=== PATIENT | female | born 1980 | race Caucasian/White ===

== ENCOUNTER 2016-10-12 03:11 | Emergency (ER) | payer MEDICAID, OTHER ==
[~2016-10-12] VITALS: Ht 170.2 cm; Wt 71.0 kg
[~2016-10-12 03:11] MED LIST: OFLO0.3D9 LEFT EAR
[2016-10-12 03:12] VITALS: BP 142/76; PULSE 83; RESP 18; TEMP 98; O2SAT 100
[2016-10-12] MEDS ORDERED: LITH300C2 PO (03:38)
[2016-10-12] MEDS ORDERED: TOPA100T11 PO (03:38)
[2016-10-12] MEDS ORDERED: XANA2TAB2 PO (03:38)
[2016-10-12] MEDS ORDERED: SERO200T PO (03:38)
[2016-10-12] MEDS ORDERED: ZOLO50TA PO (03:38)
[2016-10-12] MEDS ORDERED: CLINDAMYCIN 150 MG CAP PO ONE (03:45)
[2016-10-12] MEDS ORDERED: DEXAMETHASONE SOD PHOS 4 MG/ML VIAL IM ONE (03:45)
[2016-10-12] MEDS ORDERED: CLIN1CAP5 PO (03:56)
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
[2016-10-12] MEDS ORDERED: ACETAMINOPHEN/HYDROcodone 325 MG/5 MG TAB PO ONE (04:00)
== END 2016-10-12 04:10 | disposition home or self-care (01) ==
LOC: NEPE 03:11
DX: L03.211 Cellulitis of face (principal); B95.61 Methicillin susceptible Staphylococcus aureus infection as the cause of diseases classified elsewhere; L30.9 Dermatitis, unspecified; F17.210 Nicotine dependence, cigarettes, uncomplicated; W17.89XA Other fall from one level to another, initial encounter; Y93.9 Activity, unspecified; Y92.481 Parking lot as the place of occurrence of the external cause
CPT/HCPCS: 86403; 87070; 87186; 87205; 96372; 99283; J1100

== ENCOUNTER 2016-12-21 13:09 | Inpatient (IN) | payer MEDICAID ==
[2016-12-21] VITALS (18 sets, daily range): BP systolic 103–136; BP diastolic 62–92; PULSE 59–85; RESP 12–16; TEMP 95.8–97.3; O2SAT 97–100
[~2016-12-21] VITALS: Ht 167.6 cm; Wt 77.4 kg
[~2016-12-21 13:09] MED LIST changes: +CLIN1CAP5 PO; +LITH300C2 PO; -OFLO0.3D9 LEFT EAR; +SERO200T PO; +TOPA100T11 PO; +XANA2TAB2 PO; +ZOLO50TA PO
[2016-12-21] MEDS ORDERED: NALOXONE HCL 0.4 MG/ML AMP ONE (13:25)
[2016-12-21] MEDS ORDERED: NALOXONE HCL 2 MG/2 ML VIAL ONE (13:25)
[2016-12-21] MEDS ORDERED: SUCCINYLCHOLINE CHLORIDE 200 MG/10 ML VIAL ONE (13:26)
[2016-12-21] MEDS ORDERED: ETOMIDATE 20 MG/10 ML VIAL ONE (13:26)
[2016-12-21] MEDS ORDERED: SODIUM CHLOR 0.9% 1000 ML INJ 1,000 ML IV ONE ×2 (13:27→14:45)
[2016-12-21] MEDS ORDERED: SODIUM CHLORIDE 0.9% FLUSH 10 ML FLUSH IVF PRN (13:30)
[2016-12-21] MEDS ORDERED: NALOXONE HCL 2 MG/2 ML VIAL IVP ONE (13:30)
[2016-12-21] MEDS ORDERED: ETOMIDATE 20 MG/10 ML VIAL IVP ONE (13:45)
[2016-12-21] MEDS ORDERED: SUCCINYLCHOLINE CHLORIDE 200 MG/10 ML VIAL IVP ONE (13:45)
[2016-12-21] MEDS ORDERED: PROPOFOL 1000 MG/100 ML INJ 100 ML IV SCH ×2 (13:45→15:45)
--- NOTE | 2016-12-21 13:52 | PD ---
HPI Chief Complaint: OD/ Ingestion Time Seen by Provider: 13:27 Travel History International Travel<30 days: No Contact w/Intl Traveler<30days: No History of Present Illness HPI 36-year-old female presents after being dropped off at her parent's house with decreased mentation. The prescription she had on her were Topamax, quietapine and a benzodiazepine. Patient is unresponsive and cannot provide any history. Unknown time of ingestion and unknown ingestion PFSH Past Medical History Narrative Medical By records Bipolar Disorder: Yes Anxiety: No Depression: Yes Diminished Hearing: No Endocrine: No Genitourinary: No Immune Disorder: No Musculoskeletal: No Neurologic: No Psychiatric: Yes (Hx of diagnosis of Bipolar Disorder) Reproductive: No Respiratory: No Immunizations Current: Yes Schizophrenia: Yes ?: Unknown Past Surgical History Surgical History: Unable to Obtain Other Surgery: No Social History Narrative Social History By records Alcohol Use: No Tobacco Use: Yes (1PPD) Substance Use: Yes (HX IV DRUG ABUSE, PAIN PILLS) Allergies-Medications (Allergen,Severity, Reaction): Coded Allergies: No Known Allergies (Unverified , 10/12/16) Per pt. Reported Meds & Prescriptions Reported Meds & Active Scripts Active Clindamycin (Clindamycin HCl) 150 Mg Cap 450 Mg PO Q8HR 14 Days Reported Seroquel (Quetiapine Fumarate) 200 Mg Tab 200 Mg PO HS Zoloft (Sertraline HCl) 50 Mg Tab 50 Mg PO DAILY Topamax (Topiramate) 100 Mg Tab 100 Mg PO DAILY Xanax (Alprazolam) 2 Mg Tab 2 Mg PO QID [place] Carbonate 300 Mg Cap 300 Mg PO DAILY Review of Systems ROS Limitations: Clinical Condition, Altered Mental Status Physical Exam Exam Limitations: Clinical Condition Narrative GENERAL: Appears older than stated age unresponsive patient. SKIN: dry. HEAD: Normocephalic and atraumatic. EYES: No injection or drainage. Pupils pinpoint ENT: No nasal drainage noted. NECK: Supple, trachea midline. CARDIOVASCULAR: Regular rate and rhythm RESPIRATORY: Decreased respirations. No accessory muscle use. GASTROINTESTINAL: Abdomen soft, nondistended. NEUROLOGICAL: Unresponsive Data Data Last Documented VS Vital Signs Date Time Temp Pulse Resp B/P Pulse Ox O2 Delivery O2 Flow Rate FiO2 12/21/16 14:38 100 100 12/21/16 14:11 70 14 103/62 Auto-Vent Orders Naloxone Inj (Narcan Inj) (12/21/16 13:25) Naloxone Inj (Narcan Inj) (12/21/16 13:25) Etomidate Inj (Amidate Inj) (12/21/16 13:26) Succinylcholine Inj (Quelicin Inj) (12/21/16 13:26) Electrocardiogram (12/21/16 13:27) Complete Blood Count With Diff (12/21/16 13:27) Comprehensive Metabolic Panel (12/21/16 13:27) Prothrombin Time / Inr (Pt) (12/21/16 13:27) Act Partial Throm Time (Ptt) (12/21/16 13:27) Urinalysis - C+S If Indicated (12/21/16 13:27) Chest, Single Ap (12/21/16 13:27) Ct Brain W/O Iv Contrast(Rout) (12/21/16 13:27) Arterial Blood Gas (Abg) (12/21/16 13:27) Blood Glucose (12/21/16 13:27) Iv Access Insert/Monitor (12/21/16 13:27) Ecg Monitoring (12/21/16 13:27) Oximetry (12/21/16 13:27) Ng Gastric Tube Insert/Monitor (12/21/16 13:27) Urinary Catheter Insert/Apply (12/21/16 13:27) Naloxone Inj (Narcan Inj) (12/21/16 13:30) Sodium Chloride 0.9% Flush (Ns Flush) (12/21/16 13:30) Sodium Chlor 0.9% 1000 Ml Inj (Ns 1000 M (12/21/16 13:27) Call Poison Control (12/21/16 13:27) Drug Screen, Random Urine (12/21/16 13:27) Alcohol (Ethanol) (12/21/16 13:27) Salicylates (Aspirin) (12/21/16 13:27) Tylenol (Acetaminophen) (12/21/16 13:27) Ed Urine Pregnancytest Poc (12/21/16 13:27) Propofol 1000 Mg/100 Ml Inj (Diprivan 10 (12/21/16 13:45) ^ Infusion (12/21/16 13:37) RASS (12/21/16 13:37) Neurological Rass Scale KANCHAN.Q2H (12/21/16 13:37) Etomidate Inj (Amidate Inj) (12/21/16 13:45) Succinylcholine Inj (Quelicin Inj) (12/21/16 13:45) [place] (Li) (12/21/16 13:38) Topiramate (Topamax) (12/21/16 13:38) Urine Culture (12/21/16 13:20) Lactic Acid Sepsis Protocol (12/21/16 14:35) Blood Culture (12/21/16 14:35) Sodium Chlor 0.9% 1000 Ml Inj (Ns 1000 M (12/21/16 14:45) Piperacil-Tazo 3.375 Gm Premix (Zosyn 3. (12/21/16 14:45) Admit Order (Ed Use Only) (12/21/16 14:37) Labs Laboratory Tests Test 12/21/16 13:20 White Blood Count 5.3 TH/MM3 Red Blood Count 4.25 MIL/MM3 Hemoglobin 11.8 GM/DL Hematocrit 35.9 % Mean Corpuscular Volume 84.6 FL Mean Corpuscular Hemoglobin 27.7 PG Mean Corpuscular Hemoglobin 32.7 % Concent Red Cell Distribution Width 15.8 % Platelet Count 161 TH/MM3 Mean Platelet Volume 10.0 FL Neutrophils (%) (Auto) 47.2 % Lymphocytes (%) (Auto) 41.4 % Monocytes (%) (Auto) 5.7 % Eosinophils (%) (Auto) 5.1 % Basophils (%) (Auto) 0.6 % Neutrophils # (Auto) 2.5 TH/MM3 Lymphocytes # (Auto) 2.2 TH/MM3 Monocytes # (Auto) 0.3 TH/MM3 Eosinophils # (Auto) 0.3 TH/MM3 Basophils # (Auto) 0.0 TH/MM3 CBC Comment DIFF FINAL Differential Comment Prothrombin Time 9.8 SEC Prothromb Time International 0.9 RATIO Ratio Activated Partial 25.7 SEC Thromboplast Time Urine Color YELLOW Urine Turbidity HAZY Urine pH 6.5 Urine Specific [place] 1.010 Urine Protein NEG mg/dL Urine Glucose (UA) NEG mg/dL Urine Ketones NEG mg/dL Urine Occult Blood NEG Urine Nitrite NEG Urine Bilirubin NEG Urine Urobilinogen LESS THAN 2.0 MG/DL Urine Leukocyte Esterase MOD Urine RBC 5 /hpf Urine WBC 5 /hpf Urine Squamous Epithelial <1 /hpf Cells Urine Bacteria MANY /hpf Urine Hyaline Casts 1 /lpf Urine Mucus FEW /lpf Microscopic Urinalysis Comment CULTURE INDICATED Sodium Level 139 MEQ/L Potassium Level 3.9 MEQ/L Chloride Level 106 MEQ/L Carbon Dioxide Level 27.3 MEQ/L Anion Gap 6 MEQ/L Blood Urea Nitrogen 12 MG/DL Creatinine 0.64 MG/DL Estimat Glomerular Filtration 106 ML/MIN Rate Random Glucose 83 MG/DL Calcium Level 8.6 MG/DL Phosphorus Level 3.0 MG/DL Magnesium Level 2.6 MG/DL Total Bilirubin 0.2 MG/DL Aspartate Amino Transf 17 U/L (AST/SGOT) Alanine Aminotransferase 19 U/L (ALT/SGPT) Alkaline Phosphatase 67 U/L Total Creatine Kinase 55 U/L Troponin I LESS THAN 0.02 NG/ML Total Protein 6.4 GM/DL Albumin 3.4 GM/DL Thyroid Stimulating Hormone 4.550 uIU/ML 3rd Gen Human Chorionic Gonadotropin, LESS THAN 1 Quant MIU/ML Salicylates Level 1.7 MG/DL Urine Opiates Screen NEG Acetaminophen Level LESS THAN 2.0 MCG/ML Urine Barbiturates Screen NEG Urine Amphetamines Screen POS Urine Benzodiazepines Screen POS Urine Cocaine Screen NEG Urine Cannabinoids Screen NEG Ethyl Alcohol Level LESS THAN 3 MG/DL MDM Medical Decision Making Medical Screen Exam Complete: Yes Emergency Medical Condition: Yes Medical Record Reviewed: Yes (past history confirmed) Interpretation(s) CBC & BMP Diagram 12/21/16 13:20 Last [address] 12/21/16 1327 Signed Impressions: Service Date/Time: November 14:29 - CONCLUSION: Normal examination. Jordi Naranjo MD Chest X-Ray 12/21/16 1327 Signed Impressions: Service Date/Time: November 13:53 - CONCLUSION: 1. Endotracheal tube and nasogastric tube in satisfactory position. Minimal basilar atelectasis. Tawanda Harding MD Differential Diagnosis Overdose, congestion, hypoglycemia, intracranial, electrolyte abnormality.... Narrative Course Patient received 0.4 mg of Narcan without change and then was given in additional 1.5 mg of Narcan without any change so proceeded with rapid sequence intubation for airway protection, Will check blood work, imaging and monitor and place [facility] ed with positive benzodiazepines and amphetamines. She will be monitored in the ICU setting Critical Care Narrative Aggregate critical care time was 31 minutes. Time to perform other separately billable procedures was not included in the critical care time. My time did not include minutes spent treating any other patients simultaneously or on activities that did not directly contribute to the patient's treatment. The services I provided to this patient were to treat and/or prevent clinically significant deterioration that could result in: Shock, , Respiratory failure I provided critical care services requiring my management, as noted below: Chart data review, documentation time, medication orders and management, vital sign assessments/reviewing monitor data, ordering and reviewing lab tests, ordering and interpreting/reviewing x-rays and diagnostic studies, care of the patient and discussion of the patient with the admitting physicians. Procedures Procedure Narrative Emergently performed: INTUBATION: The patient was put in optimal position for the procedure. Rapid sequence intubation was initiated by me using 20 milligrams of etomidate IV and 100 milligrams of succinylcholine IV. The patient was intubated with a 7.5 cuffed endotracheal tube. Tube placement was confirmed by visualization of the tube and balloon passing through the cords, capnometry and subsequent chest x- ray. Breath sounds were equal and well aerated bilaterally postintubation. No breath sounds over stomach. Patient tolerated procedure well. Physician Communication Physician Communication dr alarcon agrees to admit Diagnosis Primary Impression: Overdose Qualified Code: T50.904A - Overdose, undetermined intent, initial encounter Additional Impression: Respiratory failure Qualified Code: J96.90 - Respiratory failure, unspecified chronicity, unspecified whether with hypoxia or hypercapnia Admitting Information Admitting Physician Requests: Admit Anastasiya Sandy MD December 21, 2016 13:52
--- NOTE | 2016-12-21 14:05 | RADRPT ---
EXAM DATE/TIME: 12/21/2016 13:53 [facility] COMPARISON: No previous studies available for comparison. INDICATIONS : Post intubation and OG tube placement. MEDICAL HISTORY : Unobtainable. SURGICAL HISTORY : Unobtainable. ENCOUNTER: Initial ACUITY: 1 day PAIN SCORE: Non-responsive. LOCATION: Bilateral chest FINDINGS: Endotracheal tube tip is in satisfactory position. NG tube in stomach. There is minimal subsegmental airspace disease at the bases. No effusion. No pneumothorax. CONCLUSION: 1. Endotracheal tube and nasogastric tube in satisfactory position. Minimal basilar atelectasis. Tawanda Harding MD on December 21, 2016 at 14:02 Board Certified Radiologist. This report was verified electronically.
[2016-12-21 14:19] LABS: AUTOMATED NEUTROPHIL # 2.5 TH/MM3 (1.8-7.7); BASOPHIL % 0.6 % (0.0-2.0); EOSINOPHIL # 0.3 TH/MM3 (0-0.4); EOSINOPHIL % 5.1 % (0.0-4.0); HEMATOCRIT 35.9 % (35.0-46.0); HEMO FLAGS DIFF FINAL; LYMPH % 41.4 % (9.0-44.0); LYMPHOCYTE # 2.2 TH/MM3 (1.0-4.8); MEAN CELL VOLUME 84.6 FL (80.0-100.0); MEAN CORPUSCULAR HEMOGLOBIN 27.7 PG (27.0-34.0); MEAN CORPUSCULAR HGB CONC 32.7 % (32.0-36.0); MONO % 5.7 % (0.0-8.0); NEUT % 47.2 % (16.0-70.0); PLATELET COUNT 161 TH/MM3 (150-450); RED BLOOD COUNT 4.25 MIL/MM3 (4.00-5.30); RED CELL DISTRIBUTION WIDTH 15.8 % (11.6-17.2); WHITE BLOOD COUNT 5.3 TH/MM3 (4.0-11.0)
[2016-12-21 14:26] LABS: BACTERIA, URINE MANY /hpf; BLOOD, URINE NEG (NEG); COMMENT (UR) CULTURE INDICATED; CULTURE IF INDICATED CULTURE INDICATED; GLUCOSE,URINE NEG (NEG); HYALINE CAST, URINE 1 /lpf (RARE); KETONE, URINE NEG (NEG); MUCUS URINE FEW /lpf (OCC); NITRITE,URINE NEG (NEG); PH, URINE 6.5 (5.0-8.5); SQUAMOUS EPITHELIAL CELL URINE <1 /hpf (0-5); URINE COLOR YELLOW (YELLW/STRAW)
[2016-12-21 14:28] LABS: AMPHETAMINE, URINE POS (NEG); BARBITURATES, URINE NEG (NEG); COCAINE, URINE NEG (NEG)
[2016-12-21 14:29] LABS: APTT (PATIENT) 25.7 SEC (24.3-30.1); INTERNATIONAL NORMALIZED RATIO 0.9 RATIO; PROTHROMBIN TIME - PATIENT 9.8 SEC (9.8-11.6)
[2016-12-21 14:37] LABS: ALT (GPT) 19 U/L (10-53); ANION GAP 6 MEQ/L (5-15); AST (GOT) 17 U/L (15-37); BICARBONATE 27.3 MEQ/L (21.0-32.0); BLOOD UREA NITROGEN 12 MG/DL (7-18); CHLORIDE 106 MEQ/L (98-107); GLOMERULAR FILTRATION RATE 106 ML/MIN (>89); POTASSIUM 3.9 MEQ/L (3.5-5.1); SODIUM (NA) 139 MEQ/L (136-145)
[2016-12-21 14:40] LABS: ACETAMINOPHEN LESS THAN 2.0 MCG/ML (10.0-30.0); ALKALINE PHOSPHATASE 67 U/L (45-117); TOTAL BILIRUBIN ADULT 0.2 MG/DL (0.2-1.0)
[2016-12-21] MEDS ORDERED: PIPERACIL-TAZO 3.375 GM PREMIX 50 ML IV ONE (14:45)
--- NOTE | 2016-12-21 14:46 | RADRPT ---
EXAM DATE/TIME: 12/21/2016 14:29 [facility] COMPARISON: CT BRAIN W/O CONTRAST, August 18, 2014, 19:36. INDICATIONS : Evaluate for altered mental status. RADIATION DOSE: 56.37 CTDIvol (mGy) MEDICAL HISTORY : Non-responsive. SURGICAL HISTORY : Non-responsive. ENCOUNTER: Initial ACUITY: 1 day PAIN SCALE: Non-responsive LOCATION: Bilateral cranial TECHNIQUE: Multiple contiguous axial images were obtained of the head. Using automated exposure control and adj ustment of the mA and/or kV according to patient size, radiation dose was kept as low as reasonably a chievable to obtain optimal diagnostic quality images. FINDINGS: CEREBRUM: The ventricles are normal for age. No evidence of midline shift, mass lesion, hemorrhage or acute in farction. No extra-axial fluid collections are seen. POSTERIOR FOSSA: The cerebellum and brainstem are intact. The 4th ventricle is midline. The cerebellopontine angle i s unremarkable. EXTRACRANIAL: The visualized portion of the orbits is intact. SKULL: The calvaria is intact. No evidence of skull fracture. CONCLUSION: Normal examination. Jordi Naranjo MD on December 21, 2016 at 14:41 Board Certified Radiologist. This report was verified electronically.
[2016-12-21] MEDS ORDERED: CHLORHEXIDINE GLUCONATE 2 % 1 PACK (2 CLOTHS) TOP PRN (15:15)
[2016-12-21] MEDS ORDERED: SENNOSIDES 8.6 MG TAB PO PRN (15:15)
[2016-12-21] MEDS ORDERED: BISACODYL 10 MG SUPP RECTAL PRN (15:15)
[2016-12-21] MEDS ORDERED: SODIUM CHLORIDE 0.9% FLUSH 10 ML FLUSH IV FLUSH PRN (15:15)
[2016-12-21] MEDS ORDERED: LACTULOSE SYRUP 20 GM/30 ML CUP PO PRN (15:15)
[2016-12-21] MEDS ORDERED: MAGNESIUM HYDROXIDE SUSP 30 ML CUP PO PRN (15:15)
[2016-12-21] MEDS ORDERED: ONDANSETRON HCL 4 MG/2 ML VIAL IV PRN (15:15)
[2016-12-21] MEDS ORDERED: fentaNYL DRIP 250 ML IV SCH ×2 (15:15→15:45)
[2016-12-21] MEDS ORDERED: MISCELLANEOUS NURSING INFORMATION XX SCH (15:15)
[2016-12-21] MEDS ORDERED: RESP: ALBUTEROL 2.5 MG/3 ML NEB (PRN) INH (15:15)
--- NOTE | 2016-12-21 15:37 | HHI.HP ---
[facility] Service Critical Care Medicine Primary Care Physician Unknown Admission Diagnosis overdose, respiratory failure Diagnosis: (1) Respiratory failure Diagnosis: Principal (2) Overdose Diagnosis: Principal (3) Bipolar disorder, most recent episode depressed Diagnosis: Principal Chief Complaint: EVAC from parent's house unresponsive Travel History International Travel<30 Days: No Contact w/Intl Traveler <30 Da: No History of Present Illness 36-year-old female. The admission 12/21/2016. Past medical history includes bipolar disorder, schizophrenia, depression, history of opiate addiction, IV drug use and ongoing tobaccoism. She presents to [facility] ED after being dropped off parent's house unresponsive. In route she was noted to have three-vessel particles labeled Topamax 75 mg in the morning, Seroquel 300 mg a night and Xanax 1 mg 4 times a day with many different pole fragments inside. Patient was placed on nonrebreather hemodynamic stable. She was given 1.5 mg of Narcan along with 0.5 mg of flumazenil without response. Due to her respiratory status the decision was made to intubate with 7.5 ET tube after receiving 20 mg etomidate 100 mg succinylcholine by ED physician. CT head showed no acute findings. Urine tox screen revealed positive for benzodiazepines and amphetamines. Patient has been on lithium the past and this will be checked along Topamax level. She is currently minimally responsive on the ventilator in room E 50 on 5 mcg/kg/m a propofol Review of Systems ROS Limitations: Intubated Past Family Social History Allergies: Coded Allergies: No Known Allergies (Unverified , 10/12/16) Per pt. Past Medical History Depression Bipolar disorder Schizophrenia History of opiate. Abuse History of IV drug use Tobaccoism Past Surgical History None documented. Reported Medications Active Clindamycin (Clindamycin HCl) 150 Mg Cap 450 Mg PO Q8HR 14 Days Reported Seroquel (Quetiapine Fumarate) 200 Mg Tab 200 Mg PO HS Zoloft (Sertraline HCl) 50 Mg Tab 50 Mg PO DAILY Topamax (Topiramate) 100 Mg Tab 100 Mg PO DAILY Xanax (Alprazolam) 2 Mg Tab 2 Mg PO QID [place] Carbonate 300 Mg Cap 300 Mg PO DAILY Active Ordered Medications Reviewed in EMR Family History Father with diabetes mellitus. Positive family history of bipolar disorder. Social History Social alcohol documented. One pack per day tobacco document. Positive history of IV drug use. Physical Exam Vital Signs Vital Signs Date Time Temp Pulse Resp B/P Pulse Ox O2 Delivery O2 Flow Rate FiO2 12/21/16 15:23 97.3 59 14 108/70 100 Auto-Vent 12/21/16 14:38 100 100 12/21/16 14:11 70 14 103/62 100 Auto-Vent 12/21/16 13:57 85 14 109/72 100 Auto-Vent 12/21/16 13:41 74 12/21/16 13:25 97 50 12/21/16 13:15 74 12 136/92 100 Physical Exam GENERAL: 36-year-old female, critically ill currently orotracheally intubated SKIN: Warm and dry. No rash HEAD: Atraumatic. Normocephalic. EYES: Pupils equal and round about 3 mm bilaterally and reactive. No scleral icterus. No injection or drainage. ENT: No nasal bleeding or discharge. Mucous membranes pink and moist. Oropharynx without erythema. NECK: Trachea midline. No JVD. CARDIOVASCULAR: Tachycardic, RR. S1, S2. No S4. Without murmur RESPIRATORY: Clear to auscultation. Breath sounds equal bilaterally. GASTROINTESTINAL: Abdomen soft, non-tender, nondistended. Hypoactive bowel sounds are appreciated MUSCULOSKELETAL: Extremities without significant peripheral edema. No obvious deformities. NEUROLOGICAL: Positive corneal reflex. Positive gag. Minimally responsive to deep tissue stimulation bilateral upper extremity. Upgoing toes. Laboratory Laboratory Tests Test 12/21/16 13:20 White Blood Count 5.3 Red Blood Count 4.25 Hemoglobin 11.8 Hematocrit 35.9 Mean Corpuscular Volume 84.6 Mean Corpuscular Hemoglobin 27.7 Mean Corpuscular Hemoglobin 32.7 Concent Red Cell Distribution Width 15.8 Platelet Count 161 Mean Platelet Volume 10.0 Neutrophils (%) (Auto) 47.2 Lymphocytes (%) (Auto) 41.4 Monocytes (%) (Auto) 5.7 Eosinophils (%) (Auto) 5.1 Basophils (%) (Auto) 0.6 Neutrophils # (Auto) 2.5 Lymphocytes # (Auto) 2.2 Monocytes # (Auto) 0.3 Eosinophils # (Auto) 0.3 Basophils # (Auto) 0.0 CBC Comment DIFF FINAL Differential Comment Prothrombin Time 9.8 Prothromb Time International 0.9 Ratio Activated Partial 25.7 Thromboplast Time Urine Color YELLOW Urine Turbidity HAZY Urine pH 6.5 Urine Specific Reliance 1.010 Urine Protein NEG Urine Glucose (UA) NEG Urine Ketones NEG Urine Occult Blood NEG Urine Nitrite NEG Urine Bilirubin NEG Urine Urobilinogen LESS THAN 2.0 Urine Leukocyte Esterase MOD Urine RBC 5 Urine WBC 5 Urine Squamous Epithelial <1 Cells Urine Bacteria MANY Urine Hyaline Casts 1 Urine Mucus FEW Microscopic Urinalysis Comment CULTURE INDICATED Sodium Level 139 Potassium Level 3.9 Chloride Level 106 Carbon Dioxide Level 27.3 Anion Gap 6 Blood Urea Nitrogen 12 Creatinine 0.64 Estimat Glomerular Filtration 106 Rate Random Glucose 83 Calcium Level 8.6 Total Bilirubin 0.2 Aspartate Amino Transf 17 (AST/SGOT) Alanine Aminotransferase 19 (ALT/SGPT) Alkaline Phosphatase 67 Total Protein 6.4 Albumin 3.4 Salicylates Level 1.7 Urine Opiates Screen NEG Acetaminophen Level LESS THAN 2.0 Urine Barbiturates Screen NEG Urine Amphetamines Screen POS Urine Benzodiazepines Screen POS Urine Cocaine Screen NEG Urine Cannabinoids Screen NEG Ethyl Alcohol Level LESS THAN 3 Date/Time Procedure Status Source Growth 12/21/16 13:30 Aerobic Blood Culture Received Blood Peripheral Pending 12/21/16 13:30 Anaerobic Blood Culture Received Blood Peripheral Pending 12/21/16 13:20 Urine Culture Received Urine Random Urine Pending Result Diagram: 12/21/16 1320 12/21/16 1320 Imaging Last Impressions Head CT 12/21/16 1327 Signed Impressions: Service Date/Time: November 14:29 - CONCLUSION: Normal examination. Jordi Naranjo MD Chest X-Ray 12/21/16 1327 Signed Impressions: Service Date/Time: November 13:53 - CONCLUSION: 1. Endotracheal tube and nasogastric tube in satisfactory position. Minimal basilar atelectasis. Tawanda Harding MD Assessment and Plan Assessment and Plan Neuro/Psych: Acute encephalopathy likely toxic metabolic secondary to polysubstance overdose History of bipolar disorder Schizophrenia Depression Currently on propofol and fentanyl drips for sedation/analgesia while intubated Goal of RA SS -[address] head showed no acute intracranial findings EEG has been ordered Urine toxicology screen positive for benzos and amphetamines. [place] and Topamax levels pending Home medications Topamax 100 mg daily, Zoloft 100 mg daily, Seroquel 200 mg a night, Xanax 2 mg 4 times a day and lithium 300 mg daily. CV: Sinus bradycardia On normal saline at 84 cc an hour Currently hemodynamically stable not requiring vasopressors and/or anti- hypertensives Monitor EEG and temperature. TSH and troponin pending EKG QTC level 468 Resp: Acute respiratory failure secondary to AMS PRVC 16/500/5/100 Ventilator bundle Duo nebs every 6 hours with albuterol nebs every 2 hours when necessary dyspnea Spontaneous breathing trials daily Follow-up chest x-ray and ABG post intubation GI: Patient is currently nothing by mouth OG tube to low intermittent wall suction Protonix for GI prophylaxis Maricel-Colace twice a day bowel regimen : Blanchard for accurate I's and O's in a critically ill patient Endo: Sliding-scale insulin if indicated to maintain euglycemia Renal: Monitor urine output Accurate I's and O's Creatinine currently within normal limits. Follow-up in a.m. Heme: CBC and coags within normal limits Follow-up a.m. labs ID: [id number] Currently on Zosyn 4.5 g IV every 8 hours. Day 1 Blood cultures 2, urine sample slurred in ED MSK: PT evaluate and treat FEN: Magnesium and phosphorus pain. Replace electrolytes as clinically indicated Access - 2 - 20-gauge peripheral IVs. Central line if indicated Prophylaxis - GI - Protonix - DVT - SCD/heparin subcutaneous Critical Care: The total critical care time was 35 minutes. Time to perform other separately billable procedures was not included in the critical care time. Code Status Full code Discussed Condition With Dr. Sandy/ED physician. No family available. Care plan discussed and all questions answered. Problem Qualifiers (1) Respiratory failure: Qualified Code: J96.90 - Respiratory failure, unspecified chronicity, unspecified whether with hypoxia or hypercapnia (2) Overdose: Qualified Code: T50.904A - Overdose, undetermined intent, initial encounter Brian Grigsby MD December 21, 2016 15:37
[2016-12-21] MEDS ORDERED: GLUCAGON 1 MG/ML VIAL OTHER PRN (15:45)
[2016-12-21] MEDS ORDERED: DEXTROSE 50% IN WATER 50 ML VIAL(D50) IV PRN (15:45)
[2016-12-21 15:49] LABS: MAGNESIUM 2.6 MG/DL (1.5-2.5)
[2016-12-21 15:58] LABS: BETA HCG QUANT LESS THAN 1 MIU/ML (0-5)
[2016-12-21 16:11] LABS: CREATINE KINASE 55 U/L (26-192)
--- NOTE | 2016-12-21 17:05 | MG ---
cc: LAWSON CORBETT Lab No: [id number] Date: Age: 36 Sex: F Race: Intubated on Diprivan. Hyperventilation not done. 36-year-old woman with history of bipolar. Diprivan. DESCRIPTION OF THE RECORDING: The recording shows a 14 hertz diffuse rhythm. The recording overall is synchronous and symmetric. I do not see any hemisphere asymmetries. No epileptiform or seizure activity is noted. Photic stimulation is performed without significant posterior driving. IMPRESSION: A normal EEG. No evidence for a focal or diffuse abnormality. MD CHLOE Brice/CHIN /4:59 PM /5:03 PM
[2016-12-21] MEDS: RESP: ALBUTEROL 2.5 MG/IPRATROPIUM 0.5 MG NEB (SCH) INH ×2 (17:22→20:04)
[2016-12-21] MEDS: INSULIN NovoLIN REGULAR SUPPLEMENTAL SCALE SQ SCH (18:00)
[2016-12-21] MEDS: ARTIFICIAL TEARS OPTH SOLN 15 ML BTL EACH EYE SCH (18:00)
[2016-12-21] MEDS: HEPARIN SODIUM - SQ 10,000 UNITS/ML VIAL SQ SCH (18:38)
[2016-12-21] MEDS: SODIUM CHLOR 0.9% 1000 ML INJ 1,000 ML IV SCH (18:44)
[2016-12-21 18:48] LABS: BLOOD GAS BASE EXCESS -1.3 mmol/L (-2-2); BLOOD GAS CARBOXYHEMOGLOBIN 1.4 % (0-4); BLOOD GAS HCO3 23 mmol/L (22-26); BLOOD GAS METHEMOGLOBIN 1.2 % (0-2); BLOOD GAS O2 HGB SATURATION 96 % (90-100); BLOOD GAS OXYGEN CONTENT 15.1 Vol % (12.0-20.0); BLOOD GAS PCO2 39 mmHg (38-42); BLOOD GAS PO2 177 mmHg (61-120); BLOOD GAS TOTAL HGB 10.9 G/DL (12.0-16.0); CRITICAL VALUE NO; OXYGEN DEVICE VENTILATOR; TEMP CORR TO 98.6
[2016-12-21 18:49] LABS: FIO2 35 %; VENT SETTINGS PRVC/AC
[2016-12-21 18:50] LABS: DRAW SITE RT RADIAL; NUMBER OF ARTERIAL PUNCTURES 1; STAT YES; ULNAR PULSE PRESENT
[2016-12-21] MEDS: DOCUSATE SODIUM 50 MG/SENNA 8.6 MG TAB PO SCH (20:14)
[2016-12-21] MEDS: SODIUM CHLORIDE 0.9% FLUSH 10 ML FLUSH IV FLUSH SCH (20:14)
[2016-12-21] MEDS: CHLORHEXIDINE 0.12% (ORAL KIT) 15 ML CUP MT SCH (20:14)
[2016-12-21] MEDS: PIPERACIL-TAZO 4.5 GM PREMIX 100 ML IV SCH (22:16)
[2016-12-22] VITALS (32 sets, daily range): BP systolic 89–115; BP diastolic 52–75; PULSE 64–95; RESP 8–31; TEMP 97.5–98.4; O2SAT 94–100
[2016-12-22] MEDS: PROPOFOL 1000 MG/100 ML INJ 100 ML IV SCH ×2 (01:43→05:48)
[2016-12-22 02:44] LABS: ACETAMINOPHEN LESS THAN 2.0 MCG/ML (10.0-30.0); BETA-HYDROXYBUTYRATE 0.07 MMOL/L (0.00-0.39)
[2016-12-22] MEDS: SODIUM CHLOR 0.9% 1000 ML INJ 1,000 ML IV SCH (03:05)
[2016-12-22] MEDS: RESP: ALBUTEROL 2.5 MG/IPRATROPIUM 0.5 MG NEB (SCH) INH ×4 (03:38→20:44)
[2016-12-22] MEDS: CHLORHEXIDINE GLUCONATE 2 % 1 PACK (2 CLOTHS) TOP SCH (04:00)
[2016-12-22] MEDS: HEPARIN SODIUM - SQ 10,000 UNITS/ML VIAL SQ SCH ×2 (04:33→16:08)
[2016-12-22 05:39] LABS: AUTOMATED NEUTROPHIL # 3.2 TH/MM3 (1.8-7.7); BASOPHIL % 0.4 % (0.0-2.0); EOSINOPHIL # 0.2 TH/MM3 (0-0.4); EOSINOPHIL % 3.7 % (0.0-4.0); HEMATOCRIT 33.5 % (35.0-46.0); HEMO FLAGS DIFF FINAL; LYMPH % 29.5 % (9.0-44.0); LYMPHOCYTE # 1.6 TH/MM3 (1.0-4.8); MEAN CELL VOLUME 85.1 FL (80.0-100.0); MEAN CORPUSCULAR HEMOGLOBIN 27.9 PG (27.0-34.0); MEAN CORPUSCULAR HGB CONC 32.8 % (32.0-36.0); MONO % 6.6 % (0.0-8.0); NEUT % 59.8 % (16.0-70.0); PLATELET COUNT 124 TH/MM3 (150-450); RED BLOOD COUNT 3.93 MIL/MM3 (4.00-5.30); RED CELL DISTRIBUTION WIDTH 16.5 % (11.6-17.2); WHITE BLOOD COUNT 5.4 TH/MM3 (4.0-11.0)
[2016-12-22] MEDS: INSULIN NovoLIN REGULAR SUPPLEMENTAL SCALE SQ SCH ×3 (05:48→12:00)
[2016-12-22] MEDS: PIPERACIL-TAZO 4.5 GM PREMIX 100 ML IV SCH ×3 (05:48→21:03)
[2016-12-22 06:20] LABS: ALKALINE PHOSPHATASE 63 U/L (45-117); ALT (GPT) 18 U/L (10-53); ANION GAP 6 MEQ/L (5-15); AST (GOT) 17 U/L (15-37); BICARBONATE 23.7 MEQ/L (21.0-32.0); BLOOD UREA NITROGEN 9 MG/DL (7-18); CHLORIDE 114 MEQ/L (98-107); GLOMERULAR FILTRATION RATE 102 ML/MIN (>89); MAGNESIUM 2.4 MG/DL (1.5-2.5); POTASSIUM 3.6 MEQ/L (3.5-5.1); SODIUM (NA) 144 MEQ/L (136-145); TOTAL BILIRUBIN ADULT 0.2 MG/DL (0.2-1.0)
--- NOTE | 2016-12-22 08:07 | HHI.CCPN ---
Subjective Remarks/Hospital Course 36-year-old female. The admission 12/21/2016. Past medical history includes bipolar disorder, schizophrenia, depression, history of opiate addiction, IV drug use and ongoing tobaccoism. She presents to [facility] ED after being dropped off parent's house unresponsive. In route she was noted to have three-vessel particles labeled Topamax 75 mg in the morning, Seroquel 300 mg a night and Xanax 1 mg 4 times a day with many different pole fragments inside. Patient was placed on nonrebreather hemodynamic stable. She was given 1.5 mg of Narcan along with 0.5 mg of flumazenil without response. Due to her respiratory status the decision was made to intubate with 7.5 ET tube after receiving 20 mg etomidate 100 mg succinylcholine by ED physician. CT head showed no acute findings. Urine tox screen revealed positive for benzodiazepines and amphetamines. Patient has been on lithium the past and this will be checked along Topamax level. She is currently minimally responsive on the ventilator in room E 50 on 5 mcg/kg/m a propofol Subjective 12/22: Awake and alert and following commands. Afebrile. Will attempt extubation today. Of note she is Qureshi acted. Objective Vital Signs Date Time Temp Pulse Resp B/P Pulse Ox O2 Delivery O2 Flow Rate FiO2 12/22/16 06:00 68 12/22/16 04:09 100 35 12/22/16 04:00 97.5 16 104/64 12/21/16 16:00 Auto-Vent Intake and Output 12/21/16 12/21/16 12/22/16 08:00 16:00 00:00 Intake Total 561 ml Output Total 2601 ml Balance -2040 ml Result Diagram: 12/22/16 0530 12/22/16 0530 Other Results Microbiology Date/Time Procedure Status Source Growth 12/21/16 13:30 Aerobic Blood Culture Received Blood Peripheral Pending 12/21/16 13:30 Anaerobic Blood Culture Received Blood Peripheral Pending 12/21/16 13:20 Urine Culture Received Urine Random Urine Pending Imaging Last Impressions Head CT 12/21/167 Signed Impressions: Service Date/Time: November 14:29 - CONCLUSION: Normal examination. Jordi Naranjo MD Chest X-Ray 12/21/16 1327 Signed Impressions: Service Date/Time: November 13:53 - CONCLUSION: 1. Endotracheal tube and nasogastric tube in satisfactory position. Minimal basilar atelectasis. Tawanda Harding MD Objective Remarks GENERAL: 36-year-old female, critically ill currently orotracheally intubated SKIN: Warm and dry. No rash HEAD: Atraumatic. Normocephalic. EYES: Pupils equal and round about 3 mm bilaterally and reactive. No scleral icterus. No injection or drainage. ENT: No nasal bleeding or discharge. Mucous membranes pink and moist. Oropharynx without erythema. NECK: Trachea midline. No JVD. CARDIOVASCULAR: RRR. S1, S2. No S4. Without murmur RESPIRATORY: Clear to auscultation. Breath sounds equal bilaterally. GASTROINTESTINAL: Abdomen soft, non-tender, nondistended. Hypoactive bowel sounds are appreciated MUSCULOSKELETAL: Extremities without significant peripheral edema. No obvious deformities. NEUROLOGICAL: Awake and alert and following commands by giving thumbs up and squeezing hand. Moves all 4 extremities spontaneously. A/P Assessment and Plan Neuro/Psych: Acute encephalopathy likely toxic metabolic secondary to polysubstance overdose History of bipolar disorder Schizophrenia Depression Currently on propofol and fentanyl drips for sedation/analgesia while intubated Goal of RA SS -[address] head showed no acute intracranial findings EEG showed no seizure activity 12/21 Urine toxicology screen positive for benzos and amphetamines. Ivan level 0.6. And Topamax levels pending Home medications Topamax 100 mg daily, Zoloft 100 mg daily, Seroquel 200 mg a night, Xanax 2 mg 4 times a day and lithium 300 mg daily. CV: Sinus bradycardia On normal saline at 84 cc an hour Currently hemodynamically stable not requiring vasopressors and/or anti- hypertensives TSH normal. Troponin negative. EKG QTC level 468 Resp: Acute respiratory failure secondary to AMS PRVC 16/500/5/100 Ventilator bundle Duo nebs every 6 hours with albuterol nebs every 2 hours when necessary dyspnea Spontaneous breathing trials daily Follow-up chest x-ray and ABG post intubation Attempt extubation today of passive weaning parameters GI: Patient is currently nothing by mouth OG tube to low intermittent wall suction Protonix for GI prophylaxis Maricel-Colace twice a day bowel regimen : [place]anchard for accurate I's and O's in a critically ill patient Endo: Sliding-scale insulin if indicated to maintain euglycemia Renal: Monitor urine output Accurate I's and O's Creatinine currently within normal limits. Follow-up in a.m. Heme: Anemia Thrombocytopenia CBC and coags within normal limits Follow-up a.m. labs ID: [id number] Currently on Zosyn 4.5 g IV every 8 hours. Day 1 Blood cultures 2, urine sample slurred in ED MSK: PT evaluate and treat FEN: Magnesium and phosphorus pain. Replace electrolytes as clinically indicated Access - 2 - 20-gauge peripheral IVs. Central line if indicated Prophylaxis - GI - Protonix - DVT - SCD/heparin subcutaneous Critical Care: The total care time was 35 minutes. Time to perform other separately billable procedures was not included in the critical care time. Brian Grigsby MD December 22, 2016 08:07
[2016-12-22] MEDS: PANTOPRAZOLE SODIUM 40 MG VIAL IV SCH (08:21)
[2016-12-22] MEDS: ARTIFICIAL TEARS OPTH SOLN 15 ML BTL EACH EYE SCH ×2 (08:21→12:07)
[2016-12-22] MEDS: DOCUSATE SODIUM 50 MG/SENNA 8.6 MG TAB PO SCH ×2 (08:21→21:00)
[2016-12-22] MEDS: CHLORHEXIDINE 0.12% (ORAL KIT) 15 ML CUP MT SCH (08:21)
[2016-12-22] MEDS: SODIUM CHLORIDE 0.9% FLUSH 10 ML FLUSH IV FLUSH SCH ×2 (08:21→21:00)
[2016-12-22 10:37] LABS: APTT (PATIENT) 27.5 SEC (24.3-30.1); INTERNATIONAL NORMALIZED RATIO 0.9 RATIO; PROTHROMBIN TIME - PATIENT 10.4 SEC (9.8-11.6)
--- NOTE | 2016-12-22 14:32 | PD.CONS ---
Provisional Diagnosis Admission Date December 21, 2016 at 14:38 [place]. Substance Abuse/. History of Present Illness Service Psychiatry Consult Requested By destiny Reason for Consult OD Primary Care Physician Unknown HPI OD'd on drugs. NO SI. No HI. No psychoses . Drug seeking still. Do not rec she be given xanax but other meds ok, even if not psychiatrically indicated. Pt. wants rehab and this is not a licensed rehab facility. Review of Systems Except as stated in HPI: all other systems reviewed are Neg Past Family Social History Coded Allergies: No Known Allergies (Unverified , 10/12/16) Per pt. Active Scripts Clindamycin 150 Mg [id number] Mg PO Q8HR 14 Days Ref 0 Prov:Clifford Bhatia MD 10/12/16 Reported Medications Quetiapine (Seroquel)200 Mg [id number] Mg PO HS #30 TAB Ref 0 10/12/16 Sertraline (Zoloft)50 Mg Tab50 Mg PO DAILY #30 TAB Ref 0 10/12/16 Topiramate (Topamax)100 Mg [id number] Mg PO DAILY #60 TAB Ref 0 10/12/16 Alprazolam (Xanax)2 Mg Tab2 Mg PO QID Ref 0 10/12/16 [place] Carbonate 300 Mg [id number] Mg PO DAILY Ref 0 10/12/16 Current Medications Medications (Trade) Dose Ordered Sig/Kaitlnyn Route Start Time Stop Time Status Last Admin (NS 1000 ml Inj) 1,000 ml @ 84 mls/hr [id number] IV 12/21/16 15:10 12/22/16 03:05 (NS Flush) 2 ml UNSCH PRN IV FLUSH 12/21/16 15:15 (NS Flush) 2 ml BID IV FLUSH 12/21/16 21:00 12/22/16 08:21 (Protonix Inj) 40 mg DAILY IV 12/22/16 09:00 12/22/16 08:21 (Tears Naturale Opth Soln) 1 drop TID EACH EYE 12/21/16 18:00 (Zofran Inj) 4 mg Q6H PRN IV 12/21/16 15:15 (Heparin Inj) 5,000 units Q12H SQ 12/21/16 16:00 12/22/16 04:33 Miscellaneous Information 1 [id number] XX 12/21/16 15:15 (Chlorhexidine 2% Cloth) 3 pack Taper DAILY@04 TOP 12/22/16 04:00 12/18/17 03:59 12/22/16 04:00 (Chlorhexidine 2% Cloth) 3 pack UNSCH PRN TOP 12/21/16 15:15 (Maricel-Colace) 1 tab BID PO 12/21/16 21:00 12/21/16 20:14 (Milk Of Magnesia Liq) 30 ml Q12H PRN PO 12/21/16 15:15 (Senokot) 17.2 mg Q12H PRN PO 12/21/16 15:15 (Dulcolax Supp) 10 mg DAILY PRN RECTAL 12/21/16 15:15 Lactulose 30 ml 30 ml DAILY PRN PO 12/21/16 15:15 Propofol 100 ml @ 0 mls/hr TITRATE IV 12/21/16 15:15 12/22/16 05:48 (fentaNYL DRIP) 250 ml @ 0 mls/hr TITRATE IV 12/21/16 15:15 (Peridex 0.12% Liq) 15 ml BID@08,20 MT 12/21/16 20:00 12/22/16 08:21 (D50w (Vial) Inj) 50 ml UNSCH PRN IV 12/21/16 15:45 (Glucagon Inj) 1 mg UNSCH PRN OTHER 12/21/16 15:45 Insulin Human Regular 1 1 Q6HR SQ 12/21/16 18:00 (Zosyn 4.5 Gm Premix) 100 ml @ 200 mls/hr Q8H IV 12/21/16 22:00 12/22/16 05:48 Physical Exam Vital Signs Vital Signs Date Time Temp Pulse Resp B/P Pulse Ox O2 Delivery O2 Flow Rate FiO2 12/22/16 12:30 71 12/22/16 12:15 19 115/67 100 12/22/16 09:51 Nasal Cannula 3.00 12/22/16 08:15 35 12/22/16 04:00 97.5 I/O 12/21/16 12/21/16 12/22/16 08:00 16:00 00:00 Intake Total 561 ml Output Total 2601 ml Balance -2040 ml Mental Status Examination Speech: Unremarkable Orientation: x3 Memory: Unremarkable Thought Process: Organized, Goal Directed Thought Content: Unremarkable Hallucination Type: None Attention and Concentration: Good Suicidal Ideation: No Previous Suicide Attempts: No Homicidal Ideation: No Previous Homicide Attempts: No Insight: Fair Judgment: WNL Affect: Good Mood: Appropriate Motor Activity: Normal gait Assessment & Plan Problem List: (1) Substance abuse ICD Code: F19.10 Assessment & Plan Estimated LOS: days Discharge with [facility] referral. Myke Holly MD December 22, 2016 14:32
[2016-12-22] MEDS ORDERED: diphenhydrAMINE HCL 50 MG/ML VIAL IV PUSH ONE (15:15)
[2016-12-22] MEDS ORDERED: KETOROLAC TROMETHAMINE 30 MG/ML (IVP) VIAL IV PUSH ONE (15:15)
[2016-12-22] MEDS: ACETAMINOPHEN 500 MG CPLT PO PRN ×2 (15:19→21:02)
--- NOTE | 2016-12-22 15:57 | EKG ---
Date Performed: 12/21/2016 Time Performed: 15:21:21 PTAGE: 36 years EKG: SINUS BRADYCARDIA WITH SINUS ARRHYTHMIA When compared to previous tracing, nonspecific T wa ve changes Have resolved. BORDERLINE ECG PREVIOUS TRACING : 05/31/2015 10.19 DOCTOR: Cole Coleman Interpretating Date/Time 12/22/2016 15:55:27
[2016-12-23] VITALS (9 sets, daily range): BP systolic 88–107; BP diastolic 52–71; PULSE 56–96; RESP 13–23; TEMP 98.2–98.6; O2SAT 95–100
[2016-12-23] MEDS: RESP: ALBUTEROL 2.5 MG/IPRATROPIUM 0.5 MG NEB (SCH) INH ×3 (03:57→15:44)
[2016-12-23] MEDS: CHLORHEXIDINE GLUCONATE 2 % 1 PACK (2 CLOTHS) TOP SCH (04:00)
[2016-12-23] MEDS: PIPERACIL-TAZO 4.5 GM PREMIX 100 ML IV SCH ×2 (06:33→14:28)
[2016-12-23] MEDS: HEPARIN SODIUM - SQ 10,000 UNITS/ML VIAL SQ SCH (06:33)
[2016-12-23 07:55] LABS: AUTOMATED NEUTROPHIL # 2.5 TH/MM3 (1.8-7.7); BASOPHIL % 0.3 % (0.0-2.0); EOSINOPHIL # 0.2 TH/MM3 (0-0.4); EOSINOPHIL % 3.8 % (0.0-4.0); LYMPHOCYTE # 2.3 TH/MM3 (1.0-4.8); MEAN CELL VOLUME 84.3 FL (80.0-100.0); MEAN CORPUSCULAR HEMOGLOBIN 28.1 PG (27.0-34.0); MEAN CORPUSCULAR HGB CONC 33.3 % (32.0-36.0); MONO % 6.5 % (0.0-8.0); NEUT % 46.4 % (16.0-70.0); PLATELET COUNT 156 TH/MM3 (150-450); RED BLOOD COUNT 4.04 MIL/MM3 (4.00-5.30); RED CELL DISTRIBUTION WIDTH 16.2 % (11.6-17.2); WHITE BLOOD COUNT 5.3 TH/MM3 (4.0-11.0)
[2016-12-23 07:56] LABS: HEMO FLAGS AUTO DIFF
[2016-12-23 08:02] LABS: ALT (GPT) 25 U/L (10-53); ANION GAP 7 MEQ/L (5-15); AST (GOT) 25 U/L (15-37); BICARBONATE 25.8 MEQ/L (21.0-32.0); BLOOD UREA NITROGEN 10 MG/DL (7-18); CHLORIDE 110 MEQ/L (98-107); GLOMERULAR FILTRATION RATE 110 ML/MIN (>89); MAGNESIUM 2.3 MG/DL (1.5-2.5); SODIUM (NA) 143 MEQ/L (136-145)
[2016-12-23 08:04] LABS: ALKALINE PHOSPHATASE 69 U/L (45-117); TOTAL BILIRUBIN ADULT 0.3 MG/DL (0.2-1.0)
[2016-12-23] MEDS: PANTOPRAZOLE SODIUM 40 MG VIAL IV SCH (08:04)
[2016-12-23] MEDS: ACETAMINOPHEN 500 MG CPLT PO PRN (08:05)
[2016-12-23] MEDS: SODIUM CHLORIDE 0.9% FLUSH 10 ML FLUSH IV FLUSH SCH (08:05)
[2016-12-23] MEDS: DOCUSATE SODIUM 50 MG/SENNA 8.6 MG TAB PO SCH (09:00)
[2016-12-23 09:05] LABS: BANDS 3 % (0-6); EOSINOPHILS 2 % (0-4); PLATELET ESTIMATE SMEAR NORMAL (NORMAL); PLATELET MORPHOLOGY NORMAL (NORMAL); POLYS (SEG NEUTROPHILS) 35 % (16-70); SCAN/DIFF FINAL DIFF MANUAL; WBC DIFF SAMPLE 100
[2016-12-23] MEDS ORDERED: MACR100C2 PO (14:26)
--- NOTE | 2016-12-23 14:28 | HHI.DCPOC ---
Discharge Care Plan Diagnosis: (1) UTI (urinary tract infection) (2) Respiratory failure (3) Overdose (4) Bipolar disorder, most recent episode depressed Goals to Promote Your Health * To prevent worsening of your condition and complications * To maintain your health at the optimal level Directions to Meet Your Goals Take your medications as prescribed Follow your dietary instruction Follow activity as directed Keep your appointments as scheduled Take your immunizations and boosters as scheduled If your symptoms worsen call your PCP, if no PCP go to Urgent Care Center or Emergency Room Smoking is Dangerous to Your Health. Avoid second hand smoke Call the 24-hour hour crisis hotline for domestic abuse at Ronit Baires MD December 23, 2016 14:28
--- NOTE | 2016-12-23 17:02 | HHI.DS ---
Discharge Summary Admission Date December 21, 2016 at 14:38 Discharge Date: December 23, 2016 Admitting Diagnosis overdose, respiratory failure (1) Respiratory failure ICD Code: J96.90 Diagnosis: Principal (2) Overdose ICD Code: T50.901A Diagnosis: Principal (3) Bipolar disorder, most recent episode depressed ICD Code: F31.30 Diagnosis: Principal (4) UTI (urinary tract infection) ICD Code: N39.0 Diagnosis: Principal Procedures See hospital course. Brief History - From Admission 36-year-old female. The admission 12/21/2016. Past medical history includes bipolar disorder, schizophrenia, depression, history of opiate addiction, IV drug use and ongoing tobaccoism. She presents to [place] ED after being dropped off parent's house unresponsive. In route she was noted to have three-vessel particles labeled Topamax 75 mg in the morning, Seroquel 300 mg a night and Xanax 1 mg 4 times a day with many different pole fragments inside. Patient was placed on nonrebreather hemodynamic stable. She was given 1.5 mg of Narcan along with 0.5 mg of flumazenil without response. Due to her respiratory status the decision was made to intubate with 7.5 ET tube after receiving 20 mg etomidate 100 mg succinylcholine by ED physician. CT head showed no acute findings. Urine tox screen revealed positive for benzodiazepines and amphetamines. Patient has been on lithium the past and this will be checked along Topamax level. She is currently minimally responsive on the ventilator in room E 50 on 5 mcg/kg/m a propofol CBC/BMP: 12/23/16 0634 12/23/16 0634 Significant Findings Laboratory Tests Test 12/21/16 12/21/16 12/22/16 12/23/16 13:20 18:33 05:30 06:34 Magnesium Level 2.6 MG/DL (1.5-2.5) Troponin I LESS THAN 0.02 NG/ML (0.02-0.05) Thyroid Stimulating Hormone 4.550 uIU/ML 3rd Gen (0.358-3.740) Salicylates Level 1.7 MG/DL (2.8-20.0) Acetaminophen Level LESS THAN 2.0 MCG/ML (10.0-30.0) Urine Amphetamines Screen POS (NEG) Urine Benzodiazepines Screen POS (NEG) Eosinophils (%) (Auto) 5.1 % (0.0-4.0) Urine Turbidity HAZY (CLEAR) Urine Leukocyte Esterase MOD (NEG) Urine RBC 5 /hpf (0-3) Urine Bacteria MANY /hpf (NONE) Urine Mucus FEW /lpf (OCC) Arterial Blood Partial 177 mmHg Pressure O2 (61-120) Blood Gas Hemoglobin 10.9 G/DL (12.0-16.0) Red Blood Count 3.93 MIL/MM3 (4.00-5.30) Hemoglobin 11.0 GM/DL 11.3 GM/DL (11.6-15.3) (11.6-15.3) Hematocrit 33.5 % 34.0 % (35.0-46.0) (35.0-46.0) Platelet Count 124 TH/MM3 (150-450) Chloride Level 114 MEQ/L 110 MEQ/L (98-107) (98-107) Calcium Level 7.9 MG/DL 8.4 MG/DL (8.5-10.1) (8.5-10.1) Total Protein 5.4 GM/DL 5.8 GM/DL (6.4-8.2) (6.4-8.2) Albumin 2.7 GM/DL 2.8 GM/DL (3.4-5.0) (3.4-5.0) Lymphocytes % 54 % (9-44) Imaging Last Impressions Head CT 12/21/161326 Signed Impressions: Service Date/Time: November 14:29 - CONCLUSION: Normal examination. Jordi Naranjo MD Chest X-Ray 12/21/161326 Signed Impressions: Service Date/Time: November 13:53 - CONCLUSION: 1. Endotracheal tube and nasogastric tube in satisfactory position. Minimal basilar atelectasis. Tawanda Harding MD PE at Discharge GENERAL: in NAD SKIN: Warm and dry. HEAD: Normocephalic. EYES: No scleral icterus. No injection or drainage. NECK: Supple, trachea midline. No JVD or lymphadenopathy. CARDIOVASCULAR: Regular rate and rhythm without murmurs, gallops, or rubs. RESPIRATORY: Breath sounds equal bilaterally. No accessory muscle use. GASTROINTESTINAL: Abdomen soft, non-tender, nondistended. MUSCULOSKELETAL: No cyanosis, or edema. BACK: Nontender without obvious deformity. No CVA tenderness. Pt update on day of discharge f/u overdose Patient stated that she feels a lot better. She has no complaints. She denies any pain. Patient is tolerating oral intake. Denies any shortness of breathing. Per patient's no issues. Hospital Course Acute encephalopathy likely toxic metabolic secondary to polysubstance overdose History of bipolar disorder Schizophrenia Depression Patient was initially in the ICU and she was put on propofol and fentanyl drips for sedation/analgesia while intubated Goal of RA SS -2 She was extubated successfully once her mental status improved and was not on any oxygen. CT head showed no acute intracranial findings EEG negative for any seizures. Urine toxicology screen positive for benzos and amphetamines. Most likely patient overdose. Patient was Qureshi act so psychiatrist was consulted. Per psychiatrist patient has drug seeking behavior. Psychiatrist recommended discharge with referral to [facility]. His replace with a case management consult. Dr. Rodriguez also lifted the [employer] act. Sinus bradycardia On normal saline at 84 cc an hour Currently hemodynamically stable not requiring vasopressors and/or anti- hypertensives Monitor EEG and temperature. TSH mildly elevated at 4.8 Bradycardia improved on its own with time. May be secondary to overdose. [place] level within normal limits. Acute respiratory failure secondary to AMS Due to overdose. Patient was intubated. Once patient's mental status improved she was extubated successfully. UTI Patient was empirically put on Zosyn. UA was positive for UTI. Urine culture sensitive to nitrofurantoin. Patient was put nitrofurantoin date discharge. Currently on Zosyn 4.5 g IV every 8 hours. Day 1 Blood cultures 2. Pt Condition on Discharge: Good Discharge Disposition: Discharge Home Discharge Time: <= 30 minutes Discharge Instructions DIET: Follow Instructions for: As Tolerated, No Restrictions Speech Therapy-Diet Recommends: Regular Activities you can perform: Regular-No Restrictions Follow up Referrals: PCP Follow-up - 1 Week Psychiatry Adult - 1 Week New Medications: Nitrofurantoin Monohydrate Macrocrystals (Macrobid) 100 Mg Capsule 100 MG PO BID Infection #6 Ref 0 CAP Continued Medications: [place] Carbonate ([place] Carbonate) 300 Mg Cap 300 MG PO DAILY Ref 0 CAP Quetiapine (Seroquel) 200 Mg Tab 200 MG PO HS #30 Ref 0 TAB Sertraline (Zoloft) 50 Mg Tab 50 MG PO DAILY #30 Ref 0 TAB Topiramate (Topamax) 100 Mg Tab 100 MG PO DAILY Control Seizures #60 Ref 0 TAB Discontinued Medications: Alprazolam (Xanax) 2 Mg Tab 2 MG PO QID ANXIETY Ref 0 TAB Clindamycin (Clindamycin) 150 Mg Cap 450 MG PO Q8HR Infection Days 14 Ref 0 CAP Ronit Baires MD December 23, 2016 17:02
== END 2016-12-23 17:00 | disposition home or self-care (01) | DRG 917 ==
LOC: NEPE 13:09 → NEDA 14:38 → HIMN 17:15
PROVIDERS: ADMIT Family Medicine; ATTEND Family Medicine
PROC: 0BH17EZ Insertion of Endotracheal Airway into Trachea, Via Natural or Artificial Opening (ICD-10-PCS; principal; 2016-12-21)
PROC: 5A1945Z Respiratory Ventilation, 24-96 Consecutive Hours (ICD-10-PCS; 2016-12-21)
DX: T42.4X1A Poisoning by benzodiazepines, accidental (unintentional), initial encounter (principal); J96.00 Acute respiratory failure, unspecified whether with hypoxia or hypercapnia; G92 Toxic encephalopathy; N39.0 Urinary tract infection, site not specified; F31.30 Bipolar disorder, current episode depressed, mild or moderate severity, unspecified; T43.621A Poisoning by amphetamines, accidental (unintentional), initial encounter; Y92.009 Unspecified place in unspecified non-institutional (private) residence as the place of occurrence of the external cause; D69.6 Thrombocytopenia, unspecified; F17.210 Nicotine dependence, cigarettes, uncomplicated; F41.9 Anxiety disorder, unspecified; D64.9 Anemia, unspecified; Z76.5 Malingerer [conscious simulation]; R00.1 Bradycardia, unspecified
CPT/HCPCS: 31500; 36600; 51702; 70450; 71010; 80053; 80178; 80201; 80307; 81001; 82010; 82550; 82805; 82948; 83605; 83735; 84100; 84443; 84484; 84702; 84703; 85007; 85025; 85027; 85610; 85730; 87040; 87077; 87086; 87186; 87641; 93005; 94002; 94003; 94150; 94640; 94664; 95819; 96361; 96374; 96375; C9113; J0330; J1644; J2310; J2543; J7030

== ENCOUNTER 2017-06-20 08:12 | Emergency (ER) | payer MEDICAID ==
[~2017-06-20] VITALS: Ht 170.2 cm; Wt 70.0 kg
[~2017-06-20 08:12] MED LIST changes: -CLIN1CAP5 PO; +MACR100C2 PO; -TOPA100T11 PO; +TOPI100 PO; -XANA2TAB2 PO
[2017-06-20 08:13] VITALS: BP 137/93; PULSE 100; RESP 20; TEMP 98.7; O2SAT 100
--- NOTE | 2017-06-20 08:35 | PD ---
HPI Chief Complaint: Suicide Ideation/Attempt Time Seen by Provider: 08:26 Travel History International Travel<30 days: No Contact w/Intl Traveler<30days: No Traveled to known affect area: No History of Present Illness HPI 36-year-old female presents to the emergency department with suicidal ideations brought in by her mother today. States that she was trying to kill herself by using IV heroin yesterday but was unsuccessful. She is also concerned that she has a "messed up face" as well. She does have a history of depression and bipolar disorder with prior suicide attempt via OD. Patient says that she has not had her bipolar medication in 3 days. Currently, she does feel feverish with mild nausea. Patient denies vomiting or diarrhea. States she fell the shower face first 3 days ago and had loss of consciousness. Patient also has tenderness around the right orbit and a mild headache. Patient denies blurred vision, epistaxis, back or neck pain. Denies numbness or tingling of the extremities. Denies pain anywhere else. PFSH Past Medical History Bipolar Disorder: Yes Anxiety: Yes Depression: Yes Diminished Hearing: No Endocrine: No Gastrointestinal Disorders: No Genitourinary: No Immune Disorder: No Implanted Vascular Access Dvce: No Musculoskeletal: No Neurologic: No Psychiatric: Yes (Hx of diagnosis of Bipolar Disorder) Reproductive: No Respiratory: No Immunizations Current: Yes Schizophrenia: Yes ?: Unknown LMP: april 2017 Past Surgical History Surgical History: No Previous Surgery Other Surgery: No Social History Alcohol Use: No Tobacco Use: Yes (pack a day ) Substance Use: Yes (heroin ) Allergies-Medications (Allergen,Severity, Reaction): Coded Allergies: No Known Allergies (Unverified , 10/12/16) Per pt. Reported Meds & Prescriptions Reported Meds & Active Scripts Active Macrobid (Nitrofurantoin Monohydrate Macrocrystals) 100 Mg Capsule 100 Mg PO BID Reported Seroquel (Quetiapine Fumarate) 200 Mg Tab 200 Mg PO HS Zoloft (Sertraline HCl) 50 Mg Tab 50 Mg PO DAILY Topamax (Topiramate) 100 Mg Tab 100 Mg PO DAILY [place] Carbonate 300 Mg Cap 300 Mg PO DAILY Review of Systems Except as stated in HPI: all other systems reviewed are Neg Physical Exam Narrative GENERAL: Well-nourished in mild distress SKIN: Focused skin assessment warm/dry. HEAD: Atraumatic. Normocephalic. EYES: Pupils equal and round. No scleral icterus. No injection or drainage. Periorbital region- hematoma to the upper brow, resolving ecchymosis to the lower eyelid region. EOMI ENT: No nasal bleeding or discharge. Mucous membranes pink and moist. NECK: Trachea midline. No JVD. No midline tenderness CARDIOVASCULAR: Regular rate and rhythm. No murmur appreciated. RESPIRATORY: No accessory muscle use. Clear to auscultation. Breath sounds equal bilaterally. GASTROINTESTINAL: Abdomen soft, non-tender, nondistended. MUSCULOSKELETAL: No obvious deformities. No clubbing. No cyanosis. No edema. BACK: No CVA tenderness. No rash. No point tenderness on palpation of the spine. NEUROLOGICAL: Awake and alert. No obvious cranial nerve deficits. Motor grossly within normal limits. Normal speech. PSYCHIATRIC: Depressed mood, patient reluctant to answer questions, Data Data Last Documented VS Vital Signs Date Time Temp Pulse Resp B/P (MAP) Pulse Ox O2 Delivery O2 Flow Rate FiO2 06/20/17 11:47 67 18 120/78 (92) 99 Room Air 06/20/17 08:[address] Brain W/O Iv Contrast(Rout) (06/20/17 ) Ct Facial Bones W/O Iv Cont (06/20/17 ) Complete Blood Count With Diff (06/20/17 08:35) Comprehensive Metabolic Panel (06/20/17 08:35) Psych Screen (06/20/17 08:35) Drug Screen, Random Urine (06/20/17 08:35) Ed Urine Pregnancytest Poc (06/20/17 08:51) Diet Regular Basic (06/20/17 Lunch) Ed Discharge Order (06/20/17 17:19) Labs Laboratory Tests Test 06/20/17 08:40 06/20/17 08:45 Urine Opiates Screen POS Urine Barbiturates Screen NEG Urine Amphetamines Screen NEG Urine Benzodiazepines Screen NEG Urine Cocaine Screen POS Urine Cannabinoids Screen NEG White Blood Count 8.5 TH/MM3 Red Blood Count 4.38 MIL/MM3 Hemoglobin 12.3 GM/DL Hematocrit 36.9 % Mean Corpuscular Volume 84.2 FL Mean Corpuscular Hemoglobin 28.1 PG Mean Corpuscular Hemoglobin Concent 33.4 % Red Cell Distribution Width 19.5 % Platelet Count 270 TH/MM3 Mean Platelet Volume 7.5 FL Neutrophils (%) (Auto) 70.9 % Lymphocytes (%) (Auto) 20.1 % Monocytes (%) (Auto) 6.5 % Eosinophils (%) (Auto) 2.1 % Basophils (%) (Auto) 0.4 % Neutrophils # (Auto) 6.0 TH/MM3 Lymphocytes # (Auto) 1.7 TH/MM3 Monocytes # (Auto) 0.6 TH/MM3 Eosinophils # (Auto) 0.2 TH/MM3 Basophils # (Auto) 0.0 TH/MM3 CBC Comment DIFF FINAL Differential Comment Blood Urea Nitrogen 4 MG/DL Creatinine 0.63 MG/DL Random Glucose 98 MG/DL Total Protein 7.6 GM/DL Albumin 3.5 GM/DL Calcium Level 9.0 MG/DL Alkaline Phosphatase 85 U/L Aspartate Amino Transf (AST/SGOT) 15 U/L Alanine Aminotransferase (ALT/SGPT) 20 U/L Total Bilirubin 0.3 MG/DL Sodium Level 141 MEQ/L Potassium Level 3.8 MEQ/L Chloride Level 106 MEQ/L Carbon Dioxide Level 27.6 MEQ/L Anion Gap 7 MEQ/L Estimat Glomerular Filtration Rate 108 ML/MIN [facility] Medical Decision Making Medical Screen Exam Complete: Yes Emergency Medical Condition: Yes Differential Diagnosis suicidal ideations, depression, anxiety, substance abuse right orbit fracture, contusion, abrasion, cellulitis Narrative Course 36-year-old female presents to the emergency department with suicidal ideations brought in by her mother today. States that she was trying to kill herself by using IV heroin yesterday but was unsuccessful. She is also concerned that she has a "messed up face" as well. That she does have a history of depression and bipolar disorder. Patient says that she has not had her bipolar medication in 3 days. She does have a history of suicide attempts previously. Currently, she does feel feverish with mild nausea. Patient denies vomiting or diarrhea. States she fell the shower face first 3 days ago and had loss of consciousness. Patient also has tenderness around the right orbit and a mild headache. Patient denies epistaxis, back or neck pain. Denies numbness or tingling of the extremities. Denies pain anywhere else. Vital signs stable. Physical exam- resolving ecchymosis over lower orbit, no crepitus, CN II-XII grossly intact Labs- stable Pt cleared to see psych. Psych has cleared this patient. Patient really wants to go to detox outpatient. She understands the importance of following up as recommended. She no longer feels suicidal. States she will follow up outpatient as directed. Diagnosis Primary Impression: Medical clearance for psychiatric admission Additional Impressions: Suicidal ideations FRACTURE OF NASAL BONES, INIT ENCNTR FOR CLOSED FRACTURE Referrals: [facility] Additional Instructions: Follow up with Primary Care Physician within 2-3 days Follow up with psych as recommended. Avoid substance abuse as this will worsen your mood. Follow up with detox! Disposition: 01 DISCHARGE HOME Condition: Stable Janna Méndez Jun 20, 2017 08:35
[2017-06-20 09:05] LABS: BASOPHIL % 0.4 % (0.0-2.0); EOSINOPHIL # 0.2 TH/MM3 (0-0.4); EOSINOPHIL % 2.1 % (0.0-4.0); HEMATOCRIT 36.9 % (35.0-46.0); HEMO FLAGS DIFF FINAL; LYMPH % 20.1 % (9.0-44.0); LYMPHOCYTE # 1.7 TH/MM3 (1.0-4.8); MEAN CELL VOLUME 84.2 FL (80.0-100.0); MEAN CORPUSCULAR HEMOGLOBIN 28.1 PG (27.0-34.0); MEAN CORPUSCULAR HGB CONC 33.4 % (32.0-36.0); MONO % 6.5 % (0.0-8.0); NEUT % 70.9 % (16.0-70.0); PLATELET COUNT 270 TH/MM3 (150-450); RED BLOOD COUNT 4.38 MIL/MM3 (4.00-5.30); RED CELL DISTRIBUTION WIDTH 19.5 % (11.6-17.2); WHITE BLOOD COUNT 8.5 TH/MM3 (4.0-11.0)
--- NOTE | 2017-06-20 09:12 | RADRPT ---
EXAM DATE/TIME: 06/20/2017 08:52 [facility] COMPARISON: CT BRAIN W/O CONTRAST, December 21, 2016, 14:29. INDICATIONS : Trauma, fall three days ago. RADIATION DOSE: 30.39 CTDIvol (mGy) MEDICAL HISTORY : None SURGICAL HISTORY : None. ENCOUNTER: Initial ACUITY: 1 day PAIN SCALE: 5/10 LOCATION: cranial TECHNIQUE: Multiple contiguous axial images were obtained of the head. Using automated exposure control and adj ustment of the mA and/or kV according to patient size, radiation dose was kept as low as reasonably a chievable to obtain optimal diagnostic quality images. DICOM format image data is available electro nically for review and comparison. FINDINGS: CEREBRUM: The ventricles are normal for age. No evidence of midline shift, mass lesion, hemorrhage or acute in farction. No extra-axial fluid collections are seen. POSTERIOR FOSSA: The cerebellum and brainstem are intact. The 4th ventricle is midline. The cerebellopontine angle i s unremarkable. EXTRACRANIAL: The visualized portion of the orbits is intact. SKULL: The calvaria is intact. No evidence of skull fracture. CONCLUSION: Normal examination. Haider Bejarano MD on June 20, 2017 at 9:10 Board Certified Radiologist. This report was verified electronically.
--- NOTE | 2017-06-20 09:16 | RADRPT ---
EXAM DATE/TIME: 06/20/2017 08:52 [facility] COMPARISON: No previous studies available for comparison. INDICATIONS : Trauma, fall three days ago. RADIATION DOSE: 31.30 CTDIvol (mGy) MEDICAL HISTORY : None SURGICAL HISTORY : None. ENCOUNTER: Initial ACUITY: 1 day PAIN SCORE: 5/10 LOCATION: facial TECHNIQUE: Volumetric scanning of the facial bones was performed. Using automated exposure control and adjustme nt of the mA and/or kV according to patient size, radiation dose was kept as low as reasonably achiev able to obtain optimal diagnostic quality images. DICOM format image data is available electronicall y for review and comparison. FINDINGS: ORBITS: The orbital and infraorbital osseous structures are intact. The retroconal structures have a normal configuration. No radiopaque foreign bodies are seen. NASAL BONE: The maxillary spine intact. Tiny fracture prominent anterior nasal septum in the midline. ZYGOMATIC ARCHES: Symmetric without evidence of fracture. SINUSES: The maxillary, ethmoid and frontal sinuses are intact. No air-fluid levels seen. NASAL CAVITY: Small bone spur from the right side of the nasal septum. The lacrimal ducts are intact. SOFT TISSUES: No radiopaque foreign bodies seen. Soft tissue swelling in the right frontal region. INTRACRANIAL: No intracranial air seen. CRIBIFORM PLATE: Grossly intact. CONCLUSION: Soft tissue swelling in the right frontal region. Small minimally displaced fracture of the anterior superior nasal septum. No significant displaced fractures noted. Haider Bejarano MD on June 20, 2017 at 9:12 Board Certified Radiologist. This report was verified electronically.
[2017-06-20 09:52] LABS: ANION GAP 7 MEQ/L (5-15); AST (GOT) 15 U/L (15-37); BICARBONATE 27.6 MEQ/L (21.0-32.0); BLOOD UREA NITROGEN 4 MG/DL (7-18); CHLORIDE 106 MEQ/L (98-107); GLOMERULAR FILTRATION RATE 108 ML/MIN (>89); POTASSIUM 3.8 MEQ/L (3.5-5.1); SODIUM (NA) 141 MEQ/L (136-145)
[2017-06-20 09:53] LABS: ALT (GPT) 20 U/L (10-53)
[2017-06-20 09:56] LABS: ALKALINE PHOSPHATASE 85 U/L (45-117); TOTAL BILIRUBIN ADULT 0.3 MG/DL (0.2-1.0)
[2017-06-20 11:47] VITALS: BP 120/78; PULSE 67; RESP 18; O2SAT 99
--- NOTE | 2017-06-20 16:42 | PD ---
History of Present Illness Chief Complaint: Suicide Ideation/Attempt Time Seen by Provider: 15:30 Travel History International Travel<30 Days: No Contact w/Intl Traveler<30days: No Known affected area: No Legal Status Legal Status: Voluntary History of Present Illness: History of Present Illness 36-year-old female with history of substance abuse, substance induced mood disorder as well as bipolar disorder who presents to the emergency department on a voluntary basis accompanied by her mother. The patient reported to ED staff that she was experiencing suicidal ideations and that she was trying to kill herself by using IV heroin yesterday but was unsuccessful. She is also presented concerns regarding her face . Patient initially reported that she has not had her bipolar medication in 3 days but later indicated that she had not had medications in over one month. She reported feeling depressed for the past few days with no specific stressors. After some further questioning she admits that she was released from alf one week ago and that since her releases she has been using substances including opiates. She denies any other substance use but her toxicology is positive for cocaine as well as opiates. EMR reviewed. Patient was admitted to [facility] in 2015 for treatment of substance induced mood disorder. She was evaluated by Dr. Myke Holly in November 2016 after she overdosed on medication. At that time it was recommended that she seek substance abuse treatment. Patient is seen in J pod. She is asleep but awakens with verbal stimuli. She is oriented, calm. She expresses concern over her face and her recent injuries. There is no evidence of any psychosis, no erica or hypomania. No suicidal or homicidal ideation, intent or plan. She states that she wants to begin medication again as well as wanting treatment in a drug rehabilitation program. She is advised that [facility] does not provide detox services or drug rehabilitation services but that we recommend [email or web address], [facility] or [facility]. She would like for us to be able to take her there. Informed her that we were not able to provide transportation but that I would provide her with the information for her to contact them. With the patient's permission I attempted to call her mother at [phone]. HIPAA compliant message left for her to return my call. . PFSH Past Medical History Bipolar Disorder: Yes Anxiety: Yes Depression: Yes Diminished Hearing: No Endocrine: No Gastrointestinal Disorders: No Genitourinary: No Immune Disorder: No Implanted Vascular Access Dvce: No Musculoskeletal: No Neurologic: No Psychiatric: Yes (Hx of diagnosis of Bipolar Disorder) Reproductive: No Respiratory: No Immunizations Current: Yes Schizophrenia: Yes ?: Unknown LMP: april 2017 Past Surgical History Surgical History: No Previous Surgery Other Surgery: No Psychiatric History Psychiatric History Hx Psychiatric Treatment: Pt states she has one previous inpatient psychiatric hospitalization through [facility] after an attempted overdose roughly one year ago. She reported a history of outpatient psychiatric services through [facility] History of Inpatient Treatment: Yes Guns or firearms in home: No Social History female. Released from alf one week ago. Currently homeless. Hx Alcohol Use: No Hx Tobacco Use: Yes (pack a day ) Hx Substance Use: Yes Substance Use Type: Amphetamines-Stimulants, Heroin, Cocaine Other Substances Used: Hx Methadone Tx Hx of Substance Use Treatment: Yes (Debbie denied ever receiving tretament but as per record she has had tretament at methadone clinic x 2 years. ) Family Psychiatric History Negative. Allergies-Medications (Allergen,Severity, Reaction): Coded Allergies: No Known Allergies (Unverified , 10/12/16) Per pt. Reported Meds & Prescriptions Reported Meds & Active Scripts Active Macrobid (Nitrofurantoin Monohydrate Macrocrystals) 100 Mg Capsule 100 Mg PO BID Reported Seroquel (Quetiapine Fumarate) 200 Mg Tab 200 Mg PO HS Zoloft (Sertraline HCl) 50 Mg Tab 50 Mg PO DAILY Topamax (Topiramate) 100 Mg Tab 100 Mg PO DAILY [place] Carbonate 300 Mg Cap 300 Mg PO DAILY Review of Systems Integumentary: COMPLAINS OF: Abnormal pigmentation (sores on face.) Except as stated in HPI: all other systems reviewed are Neg Mental Status Examination Appearance: Appropriate Consciousness: Alert Orientation: x4 Motor Activity: Normal gait Speech: Slow Language: Adequate Fund of Knowledge: Adequate Attention and Concentration: Adequate Memory: Unremarkable Mood: Sad Affect: Appropriate Thought Process & Associations: Intact Thought Content: Appropriate Hallucination Type: None Delusion Type: None Suicidal Ideation: No Suicidal Plan: No Suicidal Intention: No Homicidal Ideation: No Homicidal Plan: No Homicidal Intention: No Insight: Poor Judgment: Impulsive MDM Medical Decision Making Medical Record Reviewed: Yes Assessment/Plan 36-year-old female with history of subscale abuse, substance induced mood disorder as well as bipolar disorder who presents to the emergency department on a voluntary basis accompanied by her mother. The patient reported to ED staff suicidal ideations and that she was trying to kill herself by using IV heroin yesterday but was unsuccessful. She is also presented concerns regarding her face . Patient initially reported that she has not had her bipolar medication in 3 days but later indicated that she had not had medications in over one month. She reported feeling depressed for the past few days with no specific stressors. After some further questioning she admits that she was released from alf one week ago and that since her releases she has been using substances including opiates. She denies any other substance use but her toxicology is positive for cocaine as well as opiates. Patient was monitored . No behavioral dysregulation. No suicidality. She is future oriented and she is requesting treatment this time. Patient needs to seek substance abuse treatment including detox services at this time. She has been using substances since her release from alf one week ago. Recommend [facility] , [email or web address], as well as [facility]. She is requesting transportation as well. I have encouraged her to contact family member to provide transportation at this time. Debbie is cleared fro discharge from Ed. Orders Orders Ct Brain W/O Iv Contrast(Rout) (06/20/17 ) Ct Facial Bones W/O Iv Cont (06/20/17 ) Complete Blood Count With Diff (06/20/17 08:35) Comprehensive Metabolic Panel (06/20/17 08:35) Psych Screen (06/20/17 08:35) Drug Screen, Random Urine (06/20/17 08:35) Ed Urine Pregnancytest Poc (06/20/17 08:51) Diet Regular Basic (06/20/17 Lunch) Diet Regular Basic (06/20/17 Dinner) Results Vital Signs Date Time Temp Pulse Resp B/P (MAP) Pulse Ox O2 Delivery O2 Flow Rate FiO2 06/20/17 11:47 67 18 120/78 (92) 99 Room Air 06/20/17 08:13 98.7 100 20 137/93 (108) 100 Room Air Laboratory Tests Test 06/20/17 08:40 06/20/17 08:45 Urine Opiates Screen POS Urine Barbiturates Screen NEG Urine Amphetamines Screen NEG Urine Benzodiazepines Screen NEG Urine Cocaine Screen POS Urine Cannabinoids Screen NEG White Blood Count 8.5 Red Blood Count 4.38 Hemoglobin 12.3 Hematocrit 36.9 Mean Corpuscular Volume 84.2 Mean Corpuscular Hemoglobin 28.1 Mean Corpuscular Hemoglobin Concent 33.4 Red Cell Distribution Width 19.5 Platelet Count 270 Mean Platelet Volume 7.5 Neutrophils (%) (Auto) 70.9 Lymphocytes (%) (Auto) 20.1 Monocytes (%) (Auto) 6.5 Eosinophils (%) (Auto) 2.1 Basophils (%) (Auto) 0.4 Neutrophils # (Auto) 6.0 Lymphocytes # (Auto) 1.7 Monocytes # (Auto) 0.6 Eosinophils # (Auto) 0.2 Basophils # (Auto) 0.0 CBC Comment DIFF FINAL Differential Comment Blood Urea Nitrogen 4 Creatinine 0.63 Random Glucose 98 Total Protein 7.6 Albumin 3.5 Calcium Level 9.0 Alkaline Phosphatase 85 Aspartate Amino Transf (AST/SGOT) 15 Alanine Aminotransferase (ALT/SGPT) 20 Total Bilirubin 0.3 Sodium Level 141 Potassium Level 3.8 Chloride Level 106 Carbon Dioxide Level 27.6 Anion Gap 7 Estimat Glomerular Filtration Rate 108 Diagnosis Primary Impression: Opiate abuse, continuous Additional Impressions: FRACTURE OF NASAL BONES, INIT ENCNTR FOR CLOSED FRACTURE Substance induced mood disorder Psychiatrically Cleared: Yes Med/ Other Pt Specific Info: No Meds Exist/No RX given Disposition: 01 DISCHARGE HOME Condition: Stable Problem Qualifiers Chloé Patel Jun 20, 2017 16:42
== END 2017-06-20 18:13 | disposition home or self-care (01) ==
LOC: NEPD 08:12 → NEPJ 18:13
DX: F11.10 Opioid abuse, uncomplicated (principal); S02.2XXA Fracture of nasal bones, initial encounter for closed fracture; F19.94 Other psychoactive substance use, unspecified with psychoactive substance-induced mood disorder; X58.XXXA Exposure to other specified factors, initial encounter; Z79.899 Other long term (current) drug therapy
CPT/HCPCS: 70450; 70486; 80053; 80307; 84703; 85025; 99285

== ENCOUNTER 2017-06-20 18:45 | Emergency (ER) | payer MEDICAID ==
[~2017-06-20] VITALS: Ht 170.2 cm; Wt 68.0 kg
[2017-06-20 18:46] VITALS: BP 125/98; PULSE 99; RESP 20; TEMP 99.1; O2SAT 100
--- NOTE | 2017-06-20 20:23 | PD ---
HPI Chief Complaint: Psychiatric Symptoms Time Seen by Provider: 20:18 Travel History International Travel<30 days: No Contact w/Intl Traveler<30days: No Traveled to known affect area: No History of Present Illness HPI Patient comes back to the emergency department stating she still is feeling suicidal. Patient was discharged after being evaluated by psychiatric department and checked back in stating she still feeling suicidal. Patient denies any medical complaints or concerns. Denies any chest pain, shortness of breath, fevers, nausea, vomiting, abdominal pain, headache, loss or change in bowel or bladder. PFSH Past Medical History Bipolar Disorder: Yes Anxiety: Yes Depression: Yes Diminished Hearing: No Endocrine: No Gastrointestinal Disorders: No Genitourinary: No Immune Disorder: No Implanted Vascular Access Dvce: No Musculoskeletal: No Neurologic: No Psychiatric: Yes (Hx of diagnosis of Bipolar Disorder) Reproductive: No Respiratory: No Immunizations Current: Yes Schizophrenia: Yes ?: Unknown LMP: beginning of April Past Surgical History Other Surgery: No Social History Alcohol Use: No Tobacco Use: Yes (pack a day ) Substance Use: Yes Allergies-Medications (Allergen,Severity, Reaction): Coded Allergies: No Known Allergies (Unverified , 10/12/16) Per pt. Reported Meds & Prescriptions Reported Meds & Active Scripts Active Macrobid (Nitrofurantoin Monohydrate Macrocrystals) 100 Mg Capsule 100 Mg PO BID Reported Seroquel (Quetiapine Fumarate) 200 Mg Tab 200 Mg PO HS Zoloft (Sertraline HCl) 50 Mg Tab 50 Mg PO DAILY Topamax (Topiramate) 100 Mg Tab 100 Mg PO DAILY [place] Carbonate 300 Mg Cap 300 Mg PO DAILY Review of Systems Except as stated in HPI: all other systems reviewed are Neg Physical Exam Narrative GENERAL: Well-developed, well nourished, in no acute distress, and non-ill appearing. SKIN: Focused skin assessment warm and dry. HEAD: Atraumatic. Normocephalic. EYES: Pupils equal and round. EOMI. No scleral icterus. No injection or drainage. ENT: No nasal bleeding or discharge. Mucous membranes pink and moist. NECK: Trachea midline. Supple. No nuclear rigidity. CARDIOVASCULAR: Regular rate and rhythm. No murmur appreciated. RESPIRATORY: No accessory muscle use. No respiratory distress. Clear to auscultation. Breath sounds equal bilaterally. MUSCULOSKELETAL: No obvious deformities. No clubbing. No cyanosis. No edema. Full range of motion. NEUROLOGICAL: Awake and alert. No obvious cranial nerve deficits. Motor grossly within normal limits. Normal speech. PSYCHIATRIC: Appropriate mood and affect. Data Data Last Documented VS Vital Signs Date Time Temp Pulse Resp B/P (MAP) Pulse Ox O2 Delivery O2 Flow Rate FiO2 06/20/17 18:46 99.1 99 20 125/98 (107) 100 Room Air Orders Orders Psych Screen (06/20/17 20:01) [facility] Medical Decision Making Medical Screen Exam Complete: Yes Emergency Medical Condition: Yes Differential Diagnosis Homicidal, suicidal, substance abuse, malingering Narrative Course Patient was seen and examined. Labs were reviewed from earlier today, no need to repeat labs at this time. Patient medically cleared for further treatment and evaluation by psych. Final disposition per psych. I was asked by the psych department to discharge patient after patient was evaluated again by psych and cleared for outpatient follow-up. Diagnosis Primary Impression: Medical clearance for psychiatric admission Referrals: [facility] Disposition: 01 DISCHARGE HOME Condition: Stable Damon Carmona Jun 20, 2017 20:23
== END 2017-06-20 23:02 | disposition home or self-care (01) ==
LOC: NEPJ 18:45
DX: R45.851 Suicidal ideations (principal)
CPT/HCPCS: 99283

== ENCOUNTER 2017-08-27 03:08 | Emergency (ER) | payer MEDICAID ==
[~2017-08-27] VITALS: Ht 167.6 cm; Wt 60.0 kg
[2017-08-27] MEDS ORDERED: XANA2TAB2 PO (03:20)
[2017-08-27 03:21] VITALS: BP 122/84; PULSE 96; RESP 20; TEMP 97.7; O2SAT 100
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
== END 2017-08-27 06:02 | disposition home or self-care (01) ==
LOC: NEPD 03:08
DX: R53.1 Weakness (principal); F19.10 Other psychoactive substance abuse, uncomplicated; F31.9 Bipolar disorder, unspecified; F20.9 Schizophrenia, unspecified; F41.9 Anxiety disorder, unspecified
CPT/HCPCS: 99281

== ENCOUNTER 2017-08-27 08:28 | Inpatient (IN) | payer MEDICAID, OTHER ==
[~2017-08-27] VITALS: Ht 167.6 cm; Wt 60.7 kg
[~2017-08-27 08:28] MED LIST changes: +XANA2TAB2 PO
[2017-08-27 08:30] VITALS: BP 122/80; PULSE 74; RESP 16; TEMP 98; O2SAT 100
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
[2017-08-27 09:52] LABS: AUTOMATED NEUTROPHIL # 4.4 TH/MM3 (1.8-7.7); BASOPHIL # 0.1 TH/MM3 (0-0.2); BASOPHIL % 0.9 % (0.0-2.0); EOSINOPHIL # 0.1 TH/MM3 (0-0.4); EOSINOPHIL % 1.3 % (0.0-4.0); HEMATOCRIT 40.1 % (35.0-46.0); HEMOGLOBIN 14.2 GM/DL (11.6-15.3); LYMPH % 36.3 % (9.0-44.0); LYMPHOCYTE # 3.1 TH/MM3 (1.0-4.8); MEAN CELL VOLUME 83.2 FL (80.0-100.0); MEAN CORPUSCULAR HEMOGLOBIN 29.4 PG (27.0-34.0); MEAN CORPUSCULAR HGB CONC 35.3 % (32.0-36.0); MEAN PLATELET VOLUME 8.3 FL (7.0-11.0); MONO % 9.8 % (0.0-8.0); MONOCYTE # 0.8 TH/MM3 (0-0.9); NEUT % 51.7 % (16.0-70.0); PLATELET COUNT 294 TH/MM3 (150-450); RED BLOOD COUNT 4.81 MIL/MM3 (4.00-5.30); RED CELL DISTRIBUTION WIDTH 15.6 % (11.6-17.2); WHITE BLOOD COUNT 8.6 TH/MM3 (4.0-11.0)
[2017-08-27 10:18] LABS: ALBUMIN 3.9 GM/DL (3.4-5.0); AST (GOT) 13 U/L (15-37); BICARBONATE 27.4 MEQ/L (21.0-32.0); BLOOD UREA NITROGEN 12 MG/DL (7-18); CHLORIDE 104 MEQ/L (98-107); CREATININE 0.81 MG/DL (0.50-1.00); GLOMERULAR FILTRATION RATE 80 ML/MIN (>89); GLUCOSE,RANDOM 79 MG/DL (74-106); SODIUM (NA) 138 MEQ/L (136-145)
[2017-08-27 10:19] LABS: ALT (GPT) 16 U/L (10-53)
[2017-08-27 10:29] LABS: ALKALINE PHOSPHATASE 87 U/L (45-117); TOTAL BILIRUBIN ADULT 0.3 MG/DL (0.2-1.0); TOTAL PROTEIN 8.2 GM/DL (6.4-8.2)
[2017-08-27 10:32] LABS: ACETAMINOPHEN LESS THAN 2.0 MCG/ML (10.0-30.0)
[2017-08-27 13:49] VITALS: BP 124/85; PULSE 60; RESP 18; O2SAT 99
[2017-08-27] MEDS: ONDANSETRON ODT 4 MG TAB PO PRN ×2 (16:04→21:33)
[2017-08-27] MEDS ORDERED: LORazepam 2 MG/ML VIAL IM ONE (18:15)
[2017-08-27 18:53] VITALS: BP 138/79; PULSE 69; RESP 18; O2SAT 100
[2017-08-27 22:22] VITALS: BP 148/65; PULSE 63; RESP 19; O2SAT 99
[2017-08-28 00:26] VITALS: BP 118/75; PULSE 63; RESP 18
[2017-08-28] MEDS: ACETAMINOPHEN 325 MG TAB PO ONE (00:30)
[2017-08-28 06:21] VITALS: BP 118/78; PULSE 75; RESP 17; O2SAT 98
--- NOTE | 2017-08-28 10:58 | PD ---
History of Present Illness Chief Complaint: Psychiatric Symptoms Time Seen by Provider: 10:35 Travel History International Travel<30 Days: No Contact w/Intl Traveler<30days: No Known affected area: No Legal Status Legal Status: Qureshi Act Qureshi Act Signed By: LEONILA Garcia History of Present Illness: History of Present Illness HPI Patient is a 37-year-old female with record history of bipolar disorder, substance-induced mood disorder, substance abuse who presents emergency department for a chief complaint of needing to see a psychiatrist because she's been off her psychiatric medications for some time including lithium and Xanax as well as reporting that she believes that her roommate is trying to kill her. She was referred to [facility] on a recent visit here, she has not followed up yet. She is recovering drug abuser and states she's not used IV drugs in 2 weeks. Electronic medical record is reviewed. The patient has had several visits to the emergency department in the past year. She was evaluated in June 20, 2017 after and opiate overdose and she reported that she was trying to kill herself. She was wanting to have detox services and was referred to [facility] detox. She has one previous admission to our inpatient psychiatric unit in 2016 and diagnosed with substance-induced mood disorder. Her current toxicology is positive for cocaine. Patient is seen in J pod. She is alert and oriented, thin female dressed in [facility]. She is tearful. She states that she has been hearing voices that are telling her to kill her roommate as well as to kill herself. States that the voices have been ongoing for a while and she is currently hearing them. She also states that she believes the roommate is trying to kill her. The patient denies that she has been using any substances other than the cocaine. She is currently not taking any psychiatric medication. PFSH Past Medical History Bipolar Disorder: Yes Anxiety: Yes Depression: Yes Diminished Hearing: No Endocrine: No Gastrointestinal Disorders: No Genitourinary: No Immune Disorder: No Implanted Vascular Access Dvce: No Musculoskeletal: No Neurologic: No Psychiatric: Yes Reproductive: No Respiratory: No Immunizations Current: Yes Migraines: Yes Schizophrenia: Yes Seizures: Yes ?: Not LMP: ? : 4 Para: 4 Past Surgical History Surgical History: No Previous Surgery Other Surgery: No Psychiatric History Psychiatric History Hx Psychiatric Treatment: Bipolar disorder, Anxiety disorder. Is currently not in psychiatric treatment. History of Inpatient Treatment: Yes (2015 [facility]) Guns or firearms in home: No Social History female with 4 children. She does not have custody of her 4 children. She is currently living with a roommate. Unemployed. Hx Alcohol Use: No (DENIES) Hx Tobacco Use: Yes ( PPD) Hx Substance Use: Yes (Cocaine daily, Dilaudid daily, marajuana occasionally) Substance Use Type: Alcohol, Marijuana, Nicotine/Cigarettes, Cocaine, Synth Opiates-Pain Pills Other Substances Used: 1/2 ppd cigarettes daily Hx of Substance Use Treatment: Yes (patient has been on methadone for 2 years in the past.) Family Psychiatric History Negative. Allergies-Medications (Allergen,Severity, Reaction): Coded Allergies: No Known Allergies (Unverified Adverse Reaction, Unknown, 08/27/17) Per pt. Reported Meds & Prescriptions Reported Meds & Active Scripts Active Reported Xanax (Alprazolam) 2 Mg Tab 2 Mg PO Q8H PRN Seroquel (Quetiapine Fumarate) 200 Mg Tab 200 Mg PO HS Zoloft (Sertraline HCl) 50 Mg Tab 50 Mg PO DAILY Topamax (Topiramate) 100 Mg Tab 100 Mg PO DAILY [place] Carbonate 300 Mg Cap 300 Mg PO DAILY Review of Systems Constitutional: COMPLAINS OF: Weight loss Gastrointestinal: COMPLAINS OF: Nausea Psychiatric: COMPLAINS OF: Hallucinations, Suicidal Ideation Except as stated in HPI: all other systems reviewed are Neg Mental Status Examination Appearance: Disheveled Consciousness: Alert Orientation: x4 Motor Activity: Normal gait Speech: Hesitant Language: Adequate Fund of Knowledge: Adequate Attention and Concentration: Adequate Memory: Unremarkable Mood: Sad Affect: Other (tearful) Thought Process & Associations: Intact, Logical Thought Content: Hallucinations Hallucination Type: Auditory (reports command type hallucinations to hurt herself and to kill her roommate) Delusion Type: Paranoid (Iram roommates try to kill her) Suicidal Ideation: No Suicidal Plan: No Suicidal Intention: No Homicidal Ideation: No Homicidal Plan: No Homicidal Intention: No Insight: Poor Judgment: Impulsive MDM Medical Decision Making Medical Record Reviewed: Yes Assessment/Plan 37-year-old female with record history of bipolar disorder, substance use disorder, substance-induced mood disorder who presents to [facility] reporting auditory command hallucinations to kill her roommate and to kill herself. She also reports that she believes that her roommate is trying to kill her. The patient denies that she is using any other substances besides cocaine. She is currently not on psychiatric medication. The patient was monitored for extended period time in J pod and she continued to endorse command auditory hallucinations. The patient was placed on a list for [facility] but they have been unable to accept the patient. Due to continuing reports of command auditory hallucinations the patient will be admitted to inpatient psychiatric unit for further evaluation, for safety, and for stabilization. Orders Orders Ondansetron Odt (Zofran Odt) (08/27/17 16:00) Lorazepam Inj (Ativan Inj) (08/27/17 18:15) Acetaminophen (Tylenol) (08/28/17 00:30) Diet Regular Basic (08/28/17 Breakfast) Results Vital Signs Date Time Temp Pulse Resp B/P (MAP) Pulse Ox O2 Delivery O2 Flow Rate FiO2 08/28/17 06:21 75 17 118/78 (91) 98 Room Air 08/28/17 00:26 63 18 118/75 (89) 08/27/17 22:22 63 19 148/65 (92) 99 Room Air 08/27/17 18:53 69 18 138/79 (98) 100 Room Air 08/27/17 13:49 60 18 124/85 (98) 99 Room Air Laboratory Tests Test 08/27/17 13:20 Urine Opiates Screen NEG Urine Barbiturates Screen NEG Urine Amphetamines Screen NEG Urine Benzodiazepines Screen NEG Urine Cocaine Screen POS Urine Cannabinoids Screen NEG Diagnosis Primary Impression: Bipolar disorder, most recent episode depressed Additional Impressions: Substance abuse Substance induced mood disorder Admitting Information Admitting Physician Requests: Admit Condition: Stable Problem Qualifiers Chloé Patel Aug 28, 2017 10:58
[2017-08-28] MEDS ORDERED: ONDANSETRON ODT 4 MG TAB PO ONE ×2 (11:30→17:00)
[2017-08-28] MEDS ORDERED: ACETAMINOPHEN 325 MG TAB PO ONE ×2 (12:15→17:00)
[2017-08-28] MEDS: ONDANSETRON ODT 4 MG TAB PO PRN ×2 (16:56→22:33)
[2017-08-28] MEDS ORDERED: MAGNESIUM HYDROXIDE SUSP 30 ML CUP PO PRN (18:45)
[2017-08-28 20:17] LABS: AMORPHOUS SEDIMENT, URINE RARE; BACTERIA, URINE MANY /hpf; BILIRUBIN, URINE NEG (NEG); BLOOD, URINE TRACE (NEG); GLUCOSE,URINE NEG (NEG); KETONE, URINE NEG (NEG); MUCUS URINE FEW /lpf (OCC); NITRITE,URINE NEG (NEG); PH, URINE 6.5 (5.0-8.5); SQUAMOUS EPITHELIAL CELL URINE 158 /hpf (0-5); URINE COLOR YELLOW (YELLW/STRAW); URINE LEUKOCYTE ESTERASE LARGE (NEG)
[2017-08-28] MEDS ORDERED: CEPHALEXIN MONOHYDRATE 500 MG CAP PO ONE (20:45)
[2017-08-28 21:20] VITALS: BP 121/84; PULSE 78; RESP 18; O2SAT 98
[2017-08-28 21:30] VITALS: BP 140/99; PULSE 72; RESP 18; TEMP 98.6; O2SAT 99
[2017-08-29] MEDS: ALUMINUM/MAGNESIUM/SIMETH 30 ML CUP PO PRN ×3 (00:37→23:58)
[2017-08-29] MEDS: ONDANSETRON ODT 4 MG TAB PO PRN ×3 (04:35→21:01)
[2017-08-29 05:26] VITALS: BP 130/82; PULSE 54; RESP 18; TEMP 99.8; O2SAT 98
--- NOTE | 2017-08-29 08:22 | HHI.HP ---
Provisional Diagnosis Admission Date Aug 28, 2017 at 18:38 [place] I. 1. Other psychotic disorder Rule out drug-induced mood/psychotic disorder 2. Polysubstance abuse including cocaine and opiates [place] II. Deferred Certification of Person's Competence To Provide Express and Informed Consent I have personally examined Falguni Rothman , a person being served at [facility] on, Aug 29, 2017 08:00. Express and informed consent means consent voluntarily given in writing, by a competent person, after sufficient explanation and disclosure of the subject matter involved to enable the person to make a knowing and willful decision without any element of force, fraud, deceit, duress, or other form of constraint or coercion. This person is 18 years of age or older, is not now known to be incompetent to consent to treatment with a guardian advocate, and does not have a health care surrogate or proxy currently making medical treatment decisions. I have found this person to be one of the following: [x] Competent to provide express and informed consent, as defined above, for voluntary admission to this facility and is competent to provide express and informed consent for treatment. He/she has the consistent capacity to make well reasoned, willful, and knowing decisions concerning his or her medical or mental health treatment. The person fully and consistently understands the purpose of the admission for examination/placement and is fully capable of personally exercising all rights assured [place] Incompetent to provide express and informed consent to voluntary admission, and this is incompetent to provide express and informed consent to treatment. The person must be transferred to involuntary status and a petition for a guardian advocate filed with the Circuit Court. [] Refusing to provide express and informed consent to voluntary admission but is competent to provide express and informed consent for treatment. The person must be discharged or transferred to involuntary status. Form shall be completed within 24 hours of a person's arrival at the receiving facility and filed in the clinical record of each person: 1. Admitted on a voluntary basis 2. Permitted to provide express and informed consent to his/her own treatment 3. Allowed to transfer from involuntary to voluntary status 4. Prior to permitting a person to consent to his or her own treatment after having been previously found incompetent to consent to treatment. History of Present Illness Capacity: Has Capacity Psych Chief Complaint: Depression, CAH HPI Ms. Rothman is a 37-year-old female with a reported history of bipolar disorder/ schizophrenia and a chart history of drug-induced mood disorder who presented to the emergency department complaining that she felt like her roommate was trying to kill her. She was evaluated by the psychiatric nurse practitioner in the emergency department who placed the patient under the Qureshi act. Reviewing the electronic medical record, I note that the patient was admitted under Dr. Chester in March 2016 with a diagnosis of drug-induced mood disorder. Patient seen and examined with nurse. Chart reviewed. Case discussed with nursing staff. On my examination today, the patient presents as hypoverbal and flat. She says that she believes her roommate has been trying to kill her for several weeks. She believes that he has been trying to poison her with pa spray. She has not witnessed him doing this but says that she can taste the poison in her food. She endorses command auditory hallucinations to kill him and herself. She says "I didn't want to do that" and so she presented to the emergency department. She denies any urge to hurt herself or others on the inpatient unit at this time. She complains of feeling depressed and angry/ upset. She says this has been going on for "a long time." She says that she sleeps and eats fairly well. She does endorse some hopeless and worthless feelings. She endorses a significant amount of anxiety although she does not appear objectively anxious. The remainder of the psychiatric ROS is negative. The patient complains of some nausea but otherwise has no physical complaints. Past psychiatric history: The patient reports a history of bipolar disorder/ schizophrenia as noted above. She reports that her outpatient psychiatrist moved away, and she has not found a new outpatient psychiatrist. She last saw her provider about a month ago. Her most recent psychiatric admission was here at [facility]. She reports 3 prior suicide attempts all by overdose, most recently 1 year ago. Patient reports that she was previously maintained on a regimen of Xanax, Adderall, lithium 300 mg twice a day, Zoloft 100 mg daily, Topamax 75 mg twice daily and Seroquel 100 mg in the morning and 400 mg at bedtime. She says that she has been off of this regimen for at least a month. Family history: Patient reports mother has schizophrenia. She is unsure of a family history of suicide attempts. She reports that there is a family history of substance use disorder. Chemical dependency history: The patient reports that she has been on a cocaine binge. She also has been using a few tablets of Dilaudid although she says she hasn't used opiates in a few days. She denies any use of alcohol or benzodiazepines. Social history: The patient reports that she lives with a roommate. She has been with this roommate for several months. She is and has 4 children who reside with their father. She is high school educated. She does not work and is awaiting a disability settlement. She denies any history. She denies any legal history. She denies any access to guns or firearms. She is a Sikh. Review of Systems ROS Limitations: Poor Historian Except as stated in HPI: all other systems reviewed are Neg Past Psych History Psychological trauma history No reported trauma history to me Violence risk - others (6 mos) Concern for elevated risk. Patient is reporting command auditory hallucinations to kill roommate. Violence risk - self (6 mos) Concern for elevated risk. Patient is complaining of command auditory hallucinations to kill herself. She denies any urge to do so. Substance Abuse History Drugs/Alcohol past 12 months See above Past Family Social History Coded Allergies: No Known Allergies (Unverified Adverse Reaction, Unknown, 08/27/17) Per pt. Past Medical History Patient denies any significant medical history. She takes no general medical medication she tells me. Reported Medications Alprazolam (Xanax) 2 Mg Tab, 2 MG PO Q8H Y for ANXIETY, TAB 0 Refills 08/27/17 Quetiapine (Seroquel) 200 Mg Tab, 200 MG PO HS, #30 TAB 0 Refills 10/12/16 Sertraline (Zoloft) 50 Mg Tab, 50 MG PO DAILY, #30 TAB 0 Refills 10/12/16 Topiramate (Topamax) 100 Mg Tab, 100 MG PO DAILY for Control Seizures, #60 TAB 0 Refills 10/12/16 [place] Carbonate (Sk[place] Carbonate) 300 Mg Cap, 300 MG PO DAILY, CAP 0 Refills 10/12/16 Discontinued Scripts Nitrofurantoin Monohydrate Macrocrystals (Macrobid) 100 Mg Capsule, 100 MG PO BID for Infection, #6 CAP 0 Refills Prov:Ronit Baires MD 12/23/16 Current Medications Medications (Trade) Dose Ordered Sig/Kaitlynn Route Start Time Stop Time Status Last Admin (Zofran Odt) 4 mg Q6H PRN PO 08/27/17 16:00 08/29/17 04:35 (Tylenol) 650 mg Q4H PRN PO 08/28/17 18:45 (Milk Of Magnesia Liq) 30 ml DAILY PRN PO 08/28/17 18:45 (Mag-Al Plus Susp Liq) 30 ml Q6H PRN PO 08/28/17 18:45 08/29/17 00:37 Family Psych History See above Social History See above Patient's Strengths (min. 2) In a monitored setting. Verbally fluent. Physical Exam Physical examination was completed by the ED provider. On my examination today , the patient appears to be in no acute physical distress. No motor abnormalities noted. No signs of intoxication or withdrawal noted. Labs and vitals reviewed: Vital Signs Vital Signs Date Time Temp Pulse Resp B/P (MAP) Pulse Ox O2 Delivery O2 Flow Rate FiO2 08/29/17 05:26 99.8 54 18 130/82 (98) 98 08/28/17 21:20 Room Air Lab Results Item Value Date Time White Blood Count 8.6 TH/MM3 08/27/17 0920 Hemoglobin 14.2 GM/DL 08/27/17 0920 Platelet Count 294 TH/MM3 08/27/17 0920 Sodium Level 138 MEQ/L 08/27/17 0920 Potassium Level 3.6 MEQ/L 08/27/17 0920 Chloride Level 104 MEQ/L 08/27/17 0920 Carbon Dioxide Level 27.4 MEQ/L 08/27/17 0920 Blood Urea Nitrogen 12 MG/DL 08/27/17 0920 Creatinine 0.81 MG/DL 08/27/17 0920 Estimat Glomerular Filtration Rate 80 ML/MIN L 08/27/17 0920 Aspartate Amino Transf (AST/SGOT) 13 U/L L 08/27/17 0920 Alanine Aminotransferase (ALT/SGPT) 16 U/L 08/27/17 0920 Alkaline Phosphatase 87 U/L 08/27/17 0920 Thyroid Stimulating Hormone 3rd Gen 0.338 uIU/ML L 08/27/17 0920 Urine Opiates Screen NEG 08/27/17 1320 Urine Barbiturates Screen NEG 08/27/17 1320 Urine Amphetamines Screen NEG 08/27/17 1320 Urine Benzodiazepines Screen NEG 08/27/17 1320 Urine Cocaine Screen POS H 08/27/17 1320 [place] Level LESS THAN 0.1 MEQ/L L 08/27/17 0920 Ethyl Alcohol Level LESS THAN 3 MG/DL 08/27/17 0920 Urinalysis concerning for UTI. Patient received a single dose of Keflex in the ED. Urine culture is pending. EKG read as sinus bradycardia with short OH interval. QTC was 433 ms, not prolonged. Mental Status Examination Appearance: Disheveled Consciousness: Alert Orientation: x4 Motor Activity: Other (no motor abnormalities noted) Speech: Slow Language: Adequate Fund of Knowledge: Adequate Attention and Concentration: Adequate Memory: Unremarkable Mood: Anxious, Other (dysphoric) Affect: Other (restricted and consistent with stated mood) Thought Process & Associations: Intact, Logical, Linear Thought Content: Hallucinations Hallucination Type: Auditory (complains of command auditory hallucinations to kill herself and her roommate.) Delusion Type: Paranoid (believes that roommate is trying to poison her) Suicidal Ideation: No (denies SI but is experiencing CAH as noted above. No reported urge to hurt herself on the inpatient unit.) Suicidal Plan: No Suicidal Intention: No Homicidal Ideation: No (denies HI but complains of CAH against roommate. 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 On my evaluation today, the patient complains of command auditory hallucinations to hurt herself and roommate and says that she believes her roommate is trying to poison her. She has been on a cocaine binge. I wonder about some degree of drug induced mood/psychotic disorder, and she does have a history of drug- induced mood disorder. She reports that lithium and Seroquel, among other medications, were efficacious for her condition in the past. I will plan to admit the patient to the inpatient psychiatric unit for safety, observation and stabilization. Admit inpatient. Voluntary status. Obtained stat beta hCG. Pending negative test, resume Seroquel 100 mg in the morning and 400 mg at bedtime for mood stabilization and psychosis. R/B/A for med changes discussed with patient. Recheck TSH and free T4. If there is no evidence of significant thyroid derangement, could consider resuming lithium as this agent was reportedly efficacious in the past. Continue Keflex for UTI and follow urine cultures. Consult hospitalist for patient's complaints of nausea. Atarax as needed for anxiety, Cogentin as needed for EPS, Benadryl as needed for sleep. Vitals every shift. Counselor to see and obtain collateral. Disposition planning. Estimated length of stay: 5-7 days. Discharge Planning Pending psychiatric stabilization Request HC Surrog/Guard Advoc?: No Cole Monge MD Aug 29, 2017 08:22
[2017-08-29] MEDS ORDERED: BENZTROPINE MESYLATE 1 MG TAB PO PRN (08:30)
[2017-08-29] MEDS ORDERED: BENZTROPINE MESYLATE 2 MG/2 ML VIAL IM PRN (08:30)
[2017-08-29] MEDS ORDERED: CEPHALEXIN MONOHYDRATE 500 MG CAP PO SCH (09:00)
[2017-08-29] MEDS: QUEtiapine FUMARATE 100 MG TAB PO SCH (09:00)
--- NOTE | 2017-08-29 09:40 | EKG ---
Date Performed: 08/29/2017 Time Performed: 07:02:09 PTAGE: 37 years EKG: SINUS BRADYCARDIA WITH SHORT KS INTERVAL BORDERLINE ECG Since the prior tracing, there has been no significant change PREVIOUS TRACING : 12/21/2016 15.21 DOCTOR: Cole Coleman Interpretating Date/Time 08/29/2017 09:39:14
[2017-08-29 12:45] LABS: BICARBONATE 26.7 MEQ/L (21.0-32.0); BLOOD UREA NITROGEN 9 MG/DL (7-18); CHLORIDE 105 MEQ/L (98-107); CHOLESTEROL 181 MG/DL (120-200); CHOLESTEROL/ HDL RATIO 4.58 RATIO; CREATININE 0.82 MG/DL (0.50-1.00); GLOMERULAR FILTRATION RATE 79 ML/MIN (>89); GLUCOSE,RANDOM 115 MG/DL (74-106); HDL CHOLESTEROL 39.5 MG/DL (40.0-60.0); LDL CHOLESTEROL 120 MG/DL (0-99); SODIUM (NA) 139 MEQ/L (136-145); TRIGLYCERIDES 107 MG/DL (42-150)
[2017-08-29 13:57] LABS: FREE T4 1.01 NG/DL (0.76-1.46)
--- NOTE | 2017-08-29 15:17 | PD.CONS ---
HPI Service [facility] Consult Requested By Primary Care Physician No Primary Care Physician Diagnoses: (1) UTI (urinary tract infection) (2) Other psychotic disorder not due to a substance or known physiological condition History of Present Illness 37F with h/o Biploar disorder and polysubstance abuse was admitted for threats to herself and her roommate while on a cocaine binge. On admission a urine was collected that showed signs of a UTI. On history, she does admit that she has had an upset stomach with nausea lately, for 2-3 days. She had a low grade fever overnight. She denies dysuria and urinary frequency. Review of Systems Constitutional: COMPLAINS OF: Fever, Chills, DENIES: Fatigue, Weight gain, Weight loss Endocrine: DENIES: Polyuria, Polyphagia Eyes: DENIES: Blurred vision, Eye inflammation, Eye pain Ears, nose, mouth, throat: DENIES: Hearing loss, Nasal discharge, Throat pain, Ear Pain, Sinus Pain Respiratory: DENIES: Cough, Wheezing, Hemoptysis Cardiovascular: DENIES: Chest pain, Palpitations Gastrointestinal: COMPLAINS OF: Abdominal pain, Nausea, DENIES: Diarrhea, Vomiting Genitourinary: DENIES: Abnormal vaginal bleeding, Dysmenorrhea, Urinary frequency, Urinary incontinence, Urgency Musculoskeletal: DENIES: Joint pain, Muscle aches, Stiffness Hematologic/lymphatic: DENIES: Bruising, Lymphadenopathy Neurologic: DENIES: Localized weakness, Seizures Past Family Social History Allergies: Coded Allergies: No Known Allergies (Unverified Adverse Reaction, Unknown, 08/27/17) Per pt. Past Medical History Bipolar Polysubstance Abuse Past Surgical History None Family History None Social History 1 PPD smoker, polysubstance abuse with recent cocaine, denies alcohol use Physical Exam Vital Signs Vital Signs Date Time Temp Pulse Resp B/P (MAP) Pulse Ox O2 Delivery O2 Flow Rate FiO2 08/29/17 05:26 99.8 54 18 130/82 (98) 98 08/28/17 21:30 98.6 72 18 140/99 (113) 99 08/28/17 21:20 78 18 121/84 (96) 98 Room Air Physical Exam GENERAL: Thin, disheveled SKIN: Warm and dry. HEAD: Normocephalic. EYES: No scleral icterus. No injection or drainage. NECK: Supple, trachea midline. No JVD or lymphadenopathy. CARDIOVASCULAR: Regular rate and rhythm without murmurs, gallops, or rubs. RESPIRATORY: Breath sounds equal bilaterally. No accessory muscle use. GASTROINTESTINAL: Abdomen soft, non-tender, nondistended. No CVA tenderness EXTREMITIES: No cyanosis, or edema. NEUROLOGICAL: Awake, alert, and oriented x 3. Non-focal. Laboratory Laboratory Tests Test 08/28/17 19:53 08/29/17 11:44 Urine Color YELLOW Urine Turbidity CLOUDY Urine pH 6.5 Urine Specific [place] 1.018 Urine Protein 30 Urine Glucose (UA) NEG Urine Ketones NEG Urine Occult Blood TRACE Urine Nitrite NEG Urine Bilirubin NEG Urine Urobilinogen LESS THAN 2.0 Urine Leukocyte Esterase LARGE Urine RBC 69 Urine WBC 22 Urine Squamous Epithelial Cells 158 Urine Amorphous Sediment RARE Urine Bacteria MANY Urine Mucus FEW Microscopic Urinalysis Comment CULTURE INDICATED Blood Urea Nitrogen 9 Creatinine 0.82 Random Glucose 115 Calcium Level 9.0 Sodium Level 139 Potassium Level 3.4 Chloride Level 105 Carbon Dioxide Level 26.7 Anion Gap 7 Estimat Glomerular Filtration Rate 79 Triglycerides Level 107 Cholesterol Level 181 LDL Cholesterol 120 HDL Cholesterol 39.5 Cholesterol/HDL Ratio 4.58 Free Thyroxine 1.01 Thyroid Stimulating Hormone 3rd Gen 0.304 Beta HCG, Qualitative LESS THAN 1 Date/Time Source Procedure Growth Status 08/28/17 19:53 Urine Clean Catch Urine Culture - Preliminary IMMATURE GROWTH - REINCUBATE Resulted Result Diagram: 08/27/17 0920 08/29/17 1144 Assessment and Plan Problem List: (1) UTI (urinary tract infection) ICD Code: N39.0 - Urinary tract infection, site not specified Status: Acute (2) Other psychotic disorder not due to a substance or known physiological condition ICD Code: F28 - Other psychotic disorder not due to a substance or known physiological condition Assessment and Plan Urinary Tract Infection Positive Urine, cultures pending Start on Bactrim DS x 5 days Follow up cultures to compare sensitivities Bipolar Disorder w Polysubstance abuse Admitted with Mikey Meng MD Aug 29, 2017 15:16
[2017-08-29 15:48] LABS: HEMOGLOBIN A1C 5.3 % (4.3-6.0)
[2017-08-29] MEDS: ACETAMINOPHEN 325 MG TAB PO PRN ×2 (16:33→23:58)
[2017-08-29] MEDS ORDERED: POTASSIUM CHLORIDE 10 MEQ CONTROLLED RELEASE TAB PO ONE (16:45)
[2017-08-29 16:56] VITALS: BP 138/95; PULSE 73; RESP 18; TEMP 97.9; O2SAT 99
[2017-08-29] MEDS: hydrOXYzine HCL 50 MG TAB PO PRN (17:19)
[2017-08-29] MEDS: SULFAMETHOXAZOLE-TRIMETHOPRIM DS 800-160 MG TAB PO SCH (20:57)
[2017-08-29] MEDS ORDERED: QUEtiapine FUMARATE 200 MG TAB PO SCH (21:00)
[2017-08-30] MEDS: ACETAMINOPHEN 325 MG TAB PO PRN (04:25)
[2017-08-30 05:53] VITALS: BP 140/87; PULSE 82; RESP 18; TEMP 99.4; O2SAT 97
[2017-08-30] MEDS: ALUMINUM/MAGNESIUM/SIMETH 30 ML CUP PO PRN ×3 (07:30→20:25)
[2017-08-30] MEDS: SULFAMETHOXAZOLE-TRIMETHOPRIM DS 800-160 MG TAB PO SCH (08:10)
[2017-08-30] MEDS: QUEtiapine FUMARATE 100 MG TAB PO SCH (08:10)
[2017-08-30] MEDS: ONDANSETRON ODT 4 MG TAB PO PRN ×2 (08:23→16:33)
[2017-08-30 08:45] LABS: BICARBONATE 24.1 MEQ/L (21.0-32.0); CALCIUM 8.9 MG/DL (8.5-10.1); CREATININE 1.04 MG/DL (0.50-1.00)
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
[2017-08-30] MEDS ORDERED: PILL SPLITTER OTHER PRN (11:15)
[2017-08-30] MEDS: hydrOXYzine HCL 50 MG TAB PO PRN (14:13)
--- NOTE | 2017-08-30 16:11 | HHI.PR ---
Subjective Remarks Patient reports some abdominal discomfort and nausea today. Zofran helped. No dysuria. No fevers. Objective Vitals Vital Signs Date Time Temp Pulse Resp B/P (MAP) Pulse Ox O2 Delivery O2 Flow Rate FiO2 08/30/17 05:53 99.4 82 18 140/87 (104) 97 08/29/17 16:56 97.9 73 18 138/95 (109) 99 Result Diagram: 08/27/17 0920 08/30/17 0730 Objective Remarks GENERAL: Thin appearing female, in no apparent distress. CARDIOVASCULAR: Regular rate and rhythm without murmurs, gallops, or rubs. RESPIRATORY: Clear to auscultation. Breath sounds equal bilaterally. No wheezes , rales, or rhonchi. GASTROINTESTINAL: Abdomen soft, non-tender, nondistended. Normal active bowel sounds MUSCULOSKELETAL: Extremities without clubbing, cyanosis, or edema. NEURO: Alert & Oriented x4 to person, place, time, situation. Moves all ext x4 PSYCH: Flat affect. A/P Problem List: (1) Pyuria ICD Code: N39.0 - Urinary tract infection, site not specified Plan: Asymptomatic. Urine culture with contaminant. DC Abx. (2) Substance induced mood disorder ICD Code: F19.94 - Other psychoactive substance use, unspecified with psychoactive substance-induced mood disorder Status: Acute Plan: Patient using Cocaine. GI symptoms likely secondary to withdrawal. Improving with Zofran Patient counseled. (3) Other psychotic disorder not due to a substance or known physiological condition ICD Code: F28 - Other psychotic disorder not due to a substance or known physiological condition Plan: Plan per Psychiatry. (4) Diarrhea ICD Code: R19.7 - Diarrhea, unspecified Plan: Imodium as needed. Likely due to withdrawal. Already improved. Assessment and Plan Renal insufficiency: Likely secondary to mild dehydration. Encourage oral hydration. Renal function will be followed per Psychiatry since patient is on lithium. I expect full recovery of renal functions. Patient appear to be medically stable. Will sign off. Fiordaliza Glover MD Aug 30, 2017 16:11
[2017-08-30 16:27] VITALS: BP 123/91; PULSE 82; RESP 18; TEMP 98; O2SAT 99
[2017-08-30] MEDS ORDERED: LOPERAMIDE HCL 2 MG CAP PO PRN (17:00)
[2017-08-30] MEDS: LITHIUM CARBONATE 300 MG TAB PO SCH (20:24)
[2017-08-30] MEDS: QUEtiapine FUMARATE 200 MG TAB PO SCH (20:25)
[2017-08-31 05:54] VITALS: BP 117/59; PULSE 72; RESP 16; TEMP 97.8
[2017-08-31 07:57] LABS: BICARBONATE 25.1 MEQ/L (21.0-32.0); CALCIUM 9.4 MG/DL (8.5-10.1)
[2017-08-31] MEDS: LITHIUM CARBONATE 300 MG TAB PO SCH ×2 (07:59→21:26)
[2017-08-31] MEDS: QUEtiapine FUMARATE 100 MG TAB PO SCH (07:59)
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
[2017-08-31] MEDS: ACETAMINOPHEN 325 MG TAB PO PRN (10:14)
[2017-08-31] MEDS: ALUMINUM/MAGNESIUM/SIMETH 30 ML CUP PO PRN (12:02)
[2017-08-31] MEDS: hydrOXYzine HCL 50 MG TAB PO PRN ×2 (14:49→20:13)
--- NOTE | 2017-08-31 15:21 | PD.TTN ---
Patient Problems 1. Discharge planning 2. Medication compliance 3. Knowledge deficit 4. Lack of coping skills Progress Toward Goals Provider Present: Dr. Zoe Monge Provider Input: Dr. Monge's treatment team met to discuss patient's treatment plan, discharge and medication. [place] has been added to patient medication list along with tritrating her seroquel. Patient continues to be psychotic depressed. Nurse(s) Input: Patient's nurse reports patient started on lithium. Patient's attitude has improved Psychiatric Counselors Present: Romana Flores [facility] Psych Therapist Input: Patient presents calm, seculsive, paranoid. Patient made good eye contact. Patient denies suicidal and homicidal ideation. Patient reports she is tired today due to lack of sleep being on 2700 unit. Group Spec/RT/OT/STEWART Present: SAJAN Garcia Group Spec/RT/OT/STEWART Input: Patient unable to tolerate participation in the group activities Romana Flores [facility] Aug 31, 2017 15:21
[2017-08-31 18:00] VITALS: BP 121/79; PULSE 100; RESP 17; TEMP 98.5; O2SAT 100
[2017-08-31] MEDS: QUEtiapine FUMARATE 200 MG TAB PO SCH (21:26)
[2017-09-01 06:14] VITALS: BP 113/72; PULSE 100; RESP 18; TEMP 97.9; O2SAT 97
[2017-09-01 09:03] LABS: BICARBONATE 25.3 MEQ/L (21.0-32.0); CALCIUM 9.6 MG/DL (8.5-10.1); CREATININE 1.12 MG/DL (0.50-1.00)
[2017-09-01] MEDS: QUEtiapine FUMARATE 100 MG TAB PO SCH (09:14)
[2017-09-01] MEDS: LITHIUM CARBONATE 300 MG TAB PO SCH ×2 (09:14→21:09)
[2017-09-01] MEDS: hydrOXYzine HCL 50 MG TAB PO PRN ×2 (09:18→15:11)
[2017-09-01] MEDS: ACETAMINOPHEN 325 MG TAB PO PRN (09:19)
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
[2017-09-01 18:02] VITALS: BP 129/90; PULSE 92; RESP 18; TEMP 97.6; O2SAT 100
[2017-09-01] MEDS: QUEtiapine FUMARATE 200 MG TAB PO SCH (21:09)
[2017-09-01] MEDS: diphenhydrAMINE HCL 50 MG CAP PO PRN (21:09)
[2017-09-02 06:03] VITALS: BP 116/81; PULSE 83; RESP 16; TEMP 98.1; O2SAT 98
[2017-09-02] MEDS: LITHIUM CARBONATE 300 MG TAB PO SCH ×2 (08:37→21:36)
[2017-09-02] MEDS: QUEtiapine FUMARATE 100 MG TAB PO SCH (08:38)
--- NOTE | 2017-09-02 12:48 | HHI.PYPN ---
Subjective Chief Complaint: Depression, CAH Remarks Patient was seen and case discussed with nursing. Patient signed an increase in auditory hallucinations. They're telling her that she is worthless and to kill herself. She has fleeting suicidal ideation without any plans of plans of hurting herself here. She is seclusive with a flat affect. His compliant with her medications and tolerating it well. We reviewed a safety plan and if she begins to formulate a plan or any intent of hurting herself here to alert staff we will assign a one-to-one Mental Status Examination Appearance: Other (fair grooming) Consciousness: Alert Orientation: x4 Motor Activity: Other (no motor abnormalities noted) Speech: Unremarkable Language: Adequate Fund of Knowledge: Adequate Attention and Concentration: Adequate Memory: Unremarkable Mood: Sad Affect: Blunt Thought Process & Associations: Intact, Logical, Linear Thought Content: Appropriate Hallucination Type: Auditory (to hurt herself) Delusion Type: Other (continues to believe that roommate is trying to poison her, veracity unclear) Suicidal Ideation: Yes Suicidal Plan: No Suicidal Intention: No Homicidal Ideation: No Homicidal Plan: No Homicidal Intention: No Insight: Fair Judgment: Adequate (fair) Results Labs Date/Time Source Procedure Growth Status 08/28/17 19:53 Urine Clean Catch Urine Culture - Final 50-100,000 CFU/ML MIXED GRAM POSITIVE... Complete Vitals/IOs Vital Signs Date Time Temp Pulse Resp B/P (MAP) Pulse Ox O2 Delivery O2 Flow Rate FiO2 09/02/17 06:03 98.1 83 16 116/81 (93) 98 Intake and Output 09/02/17 09/02/17 09/03/17 08:00 16:00 00:00 Intake Total 240 ml Balance 240 ml Assessment & Plan Problem List: (1) Other psychotic disorder not due to a substance or known physiological condition ICD Codes: F28 - Other psychotic disorder not due to a substance or known physiological condition (2) Polysubstance abuse ICD Codes: F19.10 - Other psychoactive substance abuse, uncomplicated Assessment & Plan Continue current treatment plan Justification for Cont. Inpt. Patient would decompensate in a less restrictive setting Request HC Surrog/Guard Advoc?: No Cristopher Fraser DO Sep 02, 2017 12:48
[2017-09-02] MEDS: hydrOXYzine HCL 50 MG TAB PO PRN (15:42)
[2017-09-02] MEDS: ACETAMINOPHEN 325 MG TAB PO PRN (15:43)
[2017-09-02 18:29] VITALS: BP 122/71; PULSE 105; RESP 16; TEMP 98.6; O2SAT 99
[2017-09-02] MEDS: QUEtiapine FUMARATE 200 MG TAB PO SCH (21:36)
[2017-09-02] MEDS: diphenhydrAMINE HCL 50 MG CAP PO PRN (21:54)
[2017-09-03 05:52] VITALS: BP 115/77; PULSE 90; RESP 18; TEMP 98.3; O2SAT 99
[2017-09-03] MEDS: QUEtiapine FUMARATE 100 MG TAB PO SCH (08:35)
[2017-09-03] MEDS: LITHIUM CARBONATE 300 MG TAB PO SCH ×2 (08:35→21:22)
--- NOTE | 2017-09-03 11:22 | HHI.PYPN ---
Subjective Chief Complaint: Depression, CAH Remarks Patient seen and examined with nurse. Chart reviewed. Case discussed with nursing staff. On my examination today, the patient reports that she is starting to feel better. She reports that her auditory hallucinations are growing more intermittent and quieter noting that they seem to be coming from "far away." No delusions. Sleep is fair. She denies any suicidal or homicidal ideation. She requests to resume Topamax 50 mg twice daily, which she says was for migraine headache prophylaxis. She does complain of some dry mouth but denies side effects from medications otherwise. No physical complaints. Review of Systems ROS Limitations: Psychotic, Poor Historian Except as stated in HPI: all other systems reviewed are Neg Mental Status Examination Appearance: Other (fair grooming) Consciousness: Alert Orientation: x4 Motor Activity: Other (no abnormal motor movements noted) Speech: Unremarkable Language: Adequate Fund of Knowledge: Adequate Attention and Concentration: Adequate Memory: Unremarkable Mood: Sad (improving) Affect: Blunt Thought Process & Associations: Intact, Logical, Linear Thought Content: Appropriate Hallucination Type: Auditory (decreasing, noncommand) Delusion Type: None Suicidal Ideation: No Suicidal Plan: No Suicidal Intention: No Homicidal Ideation: No Homicidal Plan: No Homicidal Intention: No Insight: Fair Judgment: Adequate (fair) Results Labs Labs reviewed. BMP reveals improved renal function and lithium level 0.5. These labs were not available at the time of my interview with patient. Vitals/IOs Vital Signs Date Time Temp Pulse Resp B/P (MAP) Pulse Ox O2 Delivery O2 Flow Rate FiO2 09/03/17 05:52 98.3 90 18 115/77 (90) 99 Intake and Output 09/03/17 09/03/17 09/04/17 08:00 16:00 00:00 Intake Total 240 ml Balance 240 ml Assessment & Plan Problem List: (1) Other psychotic disorder not due to a substance or known physiological condition ICD Codes: F28 - Other psychotic disorder not due to a substance or known physiological condition (2) Polysubstance abuse ICD Codes: F19.10 - Other psychoactive substance abuse, uncomplicated Assessment & Plan Titrate Seroquel to 200 mg in the morning and 600 mg at bedtime for psychosis and mood stabilization. Continue lithium as ordered although we might discuss titrating this agent as well to bring the level within the therapeutic range. I will add back Topamax per patient request. R/B/A for medication changes discussed with patient. Biotene as needed for dry mouth, and we also discussed using sugar-free hard candies on an outpatient basis. Continue to monitor on the inpatient unit. Continue other medications and care as ordered. Justification for Cont. Inpt. Med changes. Resolving impairments in reality construction. Discharge Planning Pending psychiatric stabilization. Case discussed with counselor. Request HC Surrog/Guard Advoc?: No Cole Monge MD Sep 03, 2017 11:22
[2017-09-03 13:56] LABS: BICARBONATE 28.3 MEQ/L (21.0-32.0); CALCIUM 8.8 MG/DL (8.5-10.1); CREATININE 0.91 MG/DL (0.50-1.00)
[2017-09-03] MEDS: hydrOXYzine HCL 50 MG TAB PO PRN (16:15)
[2017-09-03 18:11] VITALS: BP 133/82; PULSE 86; RESP 18; TEMP 98; O2SAT 100
[2017-09-03] MEDS: TOPIRAMATE 25 MG TAB PO SCH (21:21)
[2017-09-03] MEDS: QUEtiapine FUMARATE 200 MG TAB PO SCH (21:22)
[2017-09-04 06:38] VITALS: BP 118/73; PULSE 77; RESP 17; TEMP 97.4; O2SAT 99
[2017-09-04] MEDS: TOPIRAMATE 25 MG TAB PO SCH ×2 (08:49→21:16)
[2017-09-04] MEDS: LITHIUM CARBONATE 300 MG TAB PO SCH ×3 (08:49→21:19)
[2017-09-04] MEDS: QUEtiapine FUMARATE 200 MG TAB PO SCH ×2 (08:49→21:16)
--- NOTE | 2017-09-04 12:02 | HHI.PYPN ---
Subjective Chief Complaint: Depression, CAH Remarks Patient seen and examined with nurse. Chart reviewed. Case discussed with nursing staff who has noted definite improvement in patient's condition with medication adjustments. Case discussed in treatment team. On my examination today, the patient reports that her mood is improving. She still remained somewhat anxious. Auditory hallucinations continue to decrease. No SI or HI. No psychotic material verbalized besides decreasing AH. Denies side effects from medications. No physical complaints. Agreeable to titration of lithium to try to bring level within the therapeutic range. Review of Systems Except as stated in HPI: all other systems reviewed are Neg Mental Status Examination Appearance: Appropriate Consciousness: Alert Orientation: x4 Motor Activity: Other (no motoric abnormalities noted) Speech: Unremarkable Language: Adequate Fund of Knowledge: Adequate Attention and Concentration: Adequate Memory: Unremarkable Mood: Other (mood is subjectively improving) Affect: Blunt (more full and reactive today) Thought Process & Associations: Intact, Logical, Linear Thought Content: Appropriate Hallucination Type: Auditory (continues to decrease. ) Delusion Type: None Suicidal Ideation: No Suicidal Plan: No Suicidal Intention: No Homicidal Ideation: No Homicidal Plan: No Homicidal Intention: No Insight: Fair Judgment: Adequate (fair) Results Labs Test 09/03/17 13:24 Blood Urea Nitrogen 13 MG/DL Creatinine 0.91 MG/DL Random Glucose 99 MG/DL Calcium Level 8.8 MG/DL Sodium Level 137 MEQ/L Potassium Level 3.7 MEQ/L Chloride Level 103 MEQ/L Carbon Dioxide Level 28.3 MEQ/L Anion Gap 6 MEQ/L Estimat Glomerular Filtration Rate 70 ML/MIN [employer] Level 0.5 MEQ/L Date/Time Source Procedure Growth Status 08/28/17 19:53 Urine Clean Catch Urine Culture - Final 50-100,000 CFU/ML MIXED GRAM POSITIVE... Complete Labs reviewed. [employer] level 0.5, subtherapeutic. GFR improved. Vitals/IOs Vital Signs Date Time Temp Pulse Resp B/P (MAP) Pulse Ox O2 Delivery O2 Flow Rate FiO2 09/04/17 06:38 97.4 77 17 118/73 (88) 99 Assessment & Plan Problem List: (1) Other psychotic disorder not due to a substance or known physiological condition ICD Codes: F28 - Other psychotic disorder not due to a substance or known physiological condition (2) Polysubstance abuse ICD Codes: F19.10 - Other psychoactive substance abuse, uncomplicated Assessment & Plan Titrate lithium to 300 mg 3 times daily. Plan to check a level along with a BMP at the end of the week. Continue Seroquel as ordered. Continue to monitor on the inpatient unit. Continue other medications and care as ordered. Justification for Cont. Inpt. Med changes. Risk for decompensation and less restrictive environment. Resolving impairment in reality construction. Discharge Planning Counselor reports that he is working on chemical dependency rehabilitation placement for the patient. Patient tells me that she is agreeable to this. Request HC Surrog/Guard Advoc?: No Cole Monge MD Sep 04, 2017 12:02
[2017-09-04] MEDS: hydrOXYzine HCL 50 MG TAB PO PRN (12:46)
[2017-09-04] MEDS: ALUMINUM/MAGNESIUM/SIMETH 30 ML CUP PO PRN (12:46)
[2017-09-04 16:00] VITALS: BP 133/87; PULSE 88; RESP 18; TEMP 98; O2SAT 100
[2017-09-04] MEDS: diphenhydrAMINE HCL 50 MG CAP PO PRN (21:16)
[2017-09-05] MEDS: diphenhydrAMINE HCL 50 MG CAP PO PRN (03:02)
[2017-09-05 05:56] VITALS: BP 128/58; PULSE 79; RESP 18; TEMP 97.9; O2SAT 100
[2017-09-05] MEDS: TOPIRAMATE 25 MG TAB PO SCH ×2 (08:50→22:11)
[2017-09-05] MEDS: QUEtiapine FUMARATE 200 MG TAB PO SCH ×2 (08:50→22:11)
[2017-09-05] MEDS: hydrOXYzine HCL 50 MG TAB PO PRN ×2 (09:05→15:13)
[2017-09-05] MEDS: LITHIUM CARBONATE 300 MG TAB PO SCH ×3 (09:07→22:19)
--- NOTE | 2017-09-05 10:54 | HHI.PYPN ---
Subjective Chief Complaint: Depression/Anxiety Remarks Patient seen and examined with nurse. Chart reviewed. Case discussed with nursing staff. On my examination today, the patient reports that she had a distressing conversation with her father yesterday evening. She apparently had hoped to go stay with him on discharge but he refused. She describes herself now as feeling "really stressed and depressed." She feels particularly anxious regarding her future, building on her underlying generalized anxiety, and she requests further pharmacotherapy specifically focused on the anxiety issue. She says that this episode with her father has upset her so much that she was entertaining some vague suicidal ideation without plan. No reported urge to hurt herself on the inpatient unit. Auditory hallucinations remain improved, sounding "far away." Continues to complain of some dry mouth from medications, and I have encouraged her to ask for the Biotene. I also note that she was complaining of some constipation to nursing staff overnight. No other physical complaints. Review of Systems Except as stated in HPI: all other systems reviewed are Neg Mental Status Examination Appearance: Appropriate Consciousness: Alert Orientation: x4 Motor Activity: Other (no abnormal motor movements noted) Speech: Unremarkable Language: Adequate Fund of Knowledge: Adequate Attention and Concentration: Adequate Memory: Unremarkable Mood: Anxious, Other (more dysphoric today) Affect: Anxious, Other (restricted) Thought Process & Associations: Intact, Logical, Linear Thought Content: Appropriate Hallucination Type: Auditory (decreased versus admission.) Delusion Type: None Suicidal Ideation: Yes (vague) Suicidal Plan: No Suicidal Intention: No (no urge to hurt herself on the inpatient unit) Homicidal Ideation: No Homicidal Plan: No Homicidal Intention: No Insight: Fair Judgment: Adequate (fair) Results Labs Date/Time Source Procedure Growth Status 08/28/17 19:53 Urine Clean Catch Urine Culture - Final 50-100,000 CFU/ML MIXED GRAM POSITIVE... Complete Labs reviewed. Vitals/IOs Vital Signs Date Time Temp Pulse Resp B/P (MAP) Pulse Ox O2 Delivery O2 Flow Rate FiO2 09/05/17 05:56 97.9 79 18 128/58 (81) 100 Assessment & Plan Problem List: (1) Other psychotic disorder not due to a substance or known physiological condition ICD Codes: F28 - Other psychotic disorder not due to a substance or known physiological condition (2) Polysubstance abuse ICD Codes: F19.10 - Other psychoactive substance abuse, uncomplicated Assessment & Plan Extensive discussion regarding pharmacotherapeutic options for anxiety. We settle on addition of BuSpar 10 mg 3 times daily with plans to titrate to effect. R/B/A discussed with patient. Continue other psychotropics as ordered. Bowel regimen. Continue other medications and care as ordered. Justification for Cont. Inpt. Med changes. Risk for decompensation in less restrictive environment. Discharge Planning Pending psychiatric stabilization Request HC Surrog/Guard Advoc?: No Cole Monge MD Sep 05, 2017 10:54
[2017-09-05] MEDS: busPIRone HCL 10 MG TAB PO SCH ×2 (15:20→22:19)
[2017-09-05] MEDS: BISACODYL EC 5 MG TABEC PO PRN (15:23)
[2017-09-05] MEDS: DOCUSATE SODIUM 100 MG CAP PO SCH (22:10)
[2017-09-06] MEDS: diphenhydrAMINE HCL 50 MG CAP PO PRN (01:27)
[2017-09-06 06:13] VITALS: BP 116/68; PULSE 82; RESP 16; TEMP 97.9; O2SAT 98
[2017-09-06] MEDS: TOPIRAMATE 25 MG TAB PO SCH (09:52)
[2017-09-06] MEDS: QUEtiapine FUMARATE 200 MG TAB PO SCH ×2 (09:52→20:08)
[2017-09-06] MEDS: DOCUSATE SODIUM 100 MG CAP PO SCH ×2 (09:52→20:08)
[2017-09-06] MEDS: LITHIUM CARBONATE 300 MG TAB PO SCH ×3 (09:52→21:14)
[2017-09-06] MEDS: busPIRone HCL 10 MG TAB PO SCH ×3 (09:52→20:08)
--- NOTE | 2017-09-06 12:46 | HHI.PYPN ---
Subjective Chief Complaint: Depression/Anxiety Remarks Patient seen and examined with nurse. Chart reviewed. Case discussed with nursing staff who reports patient is somewhat irritable. Case discussed with counselor. On my examination today, patient remains dysphoric secondary to issues with father. She says that this stressor has also worsened her auditory hallucinations and she once again endorses command auditory hallucinations, now to walk into traffic. She also endorses deprecatory auditory hallucinations. She denies any suicidal plan or intent to harm herself on the inpatient unit and contracts for safety. She notes in a somewhat wry fashion that there is no traffic on the unit into which she could run. Anxiety level seems to be a little less today. She feels like the Topamax is making her too sleepy and she would like to discontinue this agent. Otherwise she denies side effects from medications besides the dry mouth. No physical complaints. Review of Systems Except as stated in HPI: all other systems reviewed are Neg Mental Status Examination Appearance: Appropriate Consciousness: Alert Orientation: x4 Motor Activity: Other (no motor abnormalities noted) Speech: Unremarkable Language: Adequate Fund of Knowledge: Adequate Attention and Concentration: Adequate Memory: Unremarkable Mood: Other (dysphoric) Affect: Blunt Thought Process & Associations: Intact, Logical, Linear Thought Content: Appropriate Hallucination Type: Auditory (reportedly worsened today. See above.) Delusion Type: None Suicidal Ideation: Yes (vague) Suicidal Plan: No (no suicide plan on the unit.) Suicidal Intention: No (no suicidal intent on the unit.) Homicidal Ideation: No Homicidal Plan: No Homicidal Intention: No Insight: Fair Judgment: Adequate (fair) Results Labs Labs reviewed. Vitals/IOs Vital Signs Date Time Temp Pulse Resp B/P (MAP) Pulse Ox O2 Delivery O2 Flow Rate FiO2 09/06/17 06:13 97.9 82 16 116/68 (66) 98 Assessment & Plan Problem List: (1) Other psychotic disorder not due to a substance or known physiological condition ICD Codes: F28 - Other psychotic disorder not due to a substance or known physiological condition (2) Polysubstance abuse ICD Codes: F19.10 - Other psychoactive substance abuse, uncomplicated Assessment & Plan Titrate Seroquel to 300 mg in the morning and 600 mg at bedtime to target psychotic symptoms, although I do suspect that there is a somewhat reactive component in response to difficulties with father. Patient and I have discussed that this dose of Seroquel is somewhat above the recommended dosing range, but well within comment clinical practice. Discontinue Topamax per patient preference. Risks, benefits and alternatives for all medication changes discussed with patient. Continue to monitor on the inpatient unit. Continue other medications and care as ordered. Justification for Cont. Inpt. Monitoring for impairment in safety. Medication changes. Risk for decompensation in less restrictive environment. Discharge Planning Pending psychiatric stabilization. Request HC Surrog/Guard Advoc?: No Cole Monge MD Sep 06, 2017 12:46
[2017-09-06] MEDS: hydrOXYzine HCL 50 MG TAB PO PRN ×2 (12:47→20:08)
[2017-09-06] MEDS: BISACODYL EC 5 MG TABEC PO PRN (12:49)
[2017-09-06 17:18] VITALS: BP 117/71; PULSE 95; RESP 16; TEMP 98.1; O2SAT 100
[2017-09-07 05:40] VITALS: BP 107/64; PULSE 83; RESP 16; TEMP 98; O2SAT 97
[2017-09-07 05:41] VITALS: BP 107/64; PULSE 83; RESP 16; TEMP 98; O2SAT 97
[2017-09-07] MEDS: LITHIUM CARBONATE 300 MG TAB PO SCH ×3 (09:33→21:24)
[2017-09-07] MEDS: QUEtiapine FUMARATE 200 MG TAB PO SCH ×2 (09:33→21:01)
[2017-09-07] MEDS: busPIRone HCL 10 MG TAB PO SCH ×3 (09:33→21:23)
[2017-09-07] MEDS: DOCUSATE SODIUM 100 MG CAP PO SCH ×2 (09:33→21:00)
[2017-09-07 09:42] LABS: CREATININE 1.06 MG/DL (0.50-1.00)
--- NOTE | 2017-09-07 10:36 | HHI.PYPN ---
Subjective Chief Complaint: Depression/Anxiety Remarks Patient seen and examined with nurse. Chart reviewed. Case discussed with nursing staff. Case discussed in treatment team. On my examination today, the patient reports decreasing auditory hallucinations. No CAH. She is less dysphoric today. She feels like the Seroquel in particular is helping lift her mood. She still complains of feeling anxious and is requesting titration of her BuSpar. No SI or HI. Does complain of some dizziness upon arising, and we discussed safe standing. No other side effects from medications or physical complaints. Review of Systems Except as stated in HPI: all other systems reviewed are Neg Mental Status Examination Appearance: Appropriate Consciousness: Alert Orientation: x4 Motor Activity: Other (no abnormal motor movements noted) Speech: Unremarkable Language: Adequate Fund of Knowledge: Adequate Attention and Concentration: Adequate Memory: Unremarkable Mood: Other (less dysphoric today) Affect: Blunt (more reactive today) Thought Process & Associations: Intact, Logical, Linear Thought Content: Appropriate Hallucination Type: Auditory (decreasing, no CAH reported today) Delusion Type: None Suicidal Ideation: No Suicidal Plan: No Suicidal Intention: No Homicidal Ideation: No Homicidal Plan: No Homicidal Intention: No Insight: Fair Judgment: Adequate (fair) Results Labs Test 09/07/17 08:11 Blood Urea Nitrogen 13 MG/DL Creatinine 1.06 MG/DL Random Glucose 183 MG/DL Calcium Level 9.0 MG/DL Sodium Level 141 MEQ/L Potassium Level 3.2 MEQ/L Chloride Level 104 MEQ/L Carbon Dioxide Level 26.0 MEQ/L Anion Gap 11 MEQ/L Estimat Glomerular Filtration Rate 59 ML/MIN [place] Level 0.5 MEQ/L Labs reviewed. Hypokalemia noted. GFR noted. [place] level remains 0.5. Vitals/IOs Vital Signs Date Time Temp Pulse Resp B/P (MAP) Pulse Ox O2 Delivery O2 Flow Rate FiO2 09/07/17 05:41 98.0 83 16 107/64 (56) 97 Assessment & Plan Problem List: (1) Other psychotic disorder not due to a substance or known physiological condition ICD Codes: F28 - Other psychotic disorder not due to a substance or known physiological condition (2) Polysubstance abuse ICD Codes: F19.10 - Other psychoactive substance abuse, uncomplicated Assessment & Plan Titrate BuSpar to 20 mg 3 times daily. I have discussed with the patient option of titrating the lithium to try to bring the level within the therapeutic range, but patient prefers to continue with current dose for now. I will check another lithium level Sunday as well as as GFR remains somewhat decreased. Orthostatics and fall precautions. Continue other medications and care as ordered. Justification for Cont. Inpt. Med changes. Risk for decompensation and less restrictive environment. Resolving impairment in reality construction. Discharge Planning Case discussed with counselor. Possible discharge after the weekend. Request HC Surrog/Guard Advoc?: No Cole Monge MD Sep 07, 2017 10:36
[2017-09-07] MEDS ORDERED: POTASSIUM CHLORIDE 20 MEQ CONTROLLED RELEASE TAB PO ONE (12:00)
[2017-09-07] MEDS: hydrOXYzine HCL 50 MG TAB PO PRN ×2 (13:31→21:01)
--- NOTE | 2017-09-07 15:31 | PD.TTN ---
Patient Problems 1. Discharge planning 2. Medication compliance 3. Knowledge deficit 4. Lack of coping skills Progress Toward Goals Provider Present: Dr. Zoe Monge Provider Input: 09/07/17 will tirate medications today /over weekend , still had some psychotic symptoms that she reported Dr. Monge's treatment team met to discuss patient's treatment plan, discharge and medication. [place] has been added to patient medication list along with tritrating her seroquel. Patient continues to be psychotic depressed. Nurse(s) Input: Patient's nurse reports patient started on lithium. Patient's attitude has improved Psychiatric Counselors Present: Romana Flores [facility] Psych Therapist Input: 09/07/17 she may be able to return to father, per patient, but wishes to go to rehab, providing her sober living iinfo again to make calls and find out if she can be accepted Patient presents calm, seculsive, paranoid. Patient made good eye contact. Patient denies suicidal and homicidal ideation. Patient reports she is tired today due to lack of sleep being on 2700 unit. Group Spec/RT/OT/STEWART Present: SAJAN Garcia Group Spec/RT/OT/STEWART Input: 09/07/17 patient attends select groups and is pleasant and appropriate Patient unable to tolerate participation in the group activities Jennifer Hunt LCSW Sep 07, 2017 15:31
[2017-09-08 05:35] VITALS: BP 112/63; PULSE 85; RESP 18; TEMP 97.8; O2SAT 98
[2017-09-08] MEDS: busPIRone HCL 10 MG TAB PO SCH ×4 (08:58→20:58)
[2017-09-08] MEDS: QUEtiapine FUMARATE 200 MG TAB PO SCH ×2 (09:19→20:59)
[2017-09-08] MEDS: DOCUSATE SODIUM 100 MG CAP PO SCH ×2 (09:20→20:58)
[2017-09-08] MEDS: LITHIUM CARBONATE 300 MG TAB PO SCH ×3 (09:21→20:59)
--- NOTE | 2017-09-08 16:50 | HHI.PYPN ---
Subjective Chief Complaint: Depression/Anxiety Remarks Pt seen and discussed with staff. She has been compliant and cooperative with medications. No behavioral problems. She expressed concerns to RN about substance abuse relapse after discharge. She reports that mood is better today. No SI/HI Mental Status Examination Appearance: Appropriate Consciousness: Alert Orientation: x4 Motor Activity: Other (no abnormal motor movements noted) Speech: Unremarkable Language: Adequate Fund of Knowledge: Adequate Attention and Concentration: Adequate Memory: Unremarkable Mood: Other (less dysphoric today) Affect: Blunt (more reactive today) Thought Process & Associations: Intact, Logical, Linear Thought Content: Appropriate Hallucination Type: Auditory (decreasing, no CAH reported today) Delusion Type: None Suicidal Ideation: No Suicidal Plan: No Suicidal Intention: No Homicidal Ideation: No Homicidal Plan: No Homicidal Intention: No Insight: Fair Judgment: Adequate (fair) Results Labs Date/Time Source Procedure Growth Status 08/28/17 19:53 Urine Clean Catch Urine Culture - Final 50-100,000 CFU/ML MIXED GRAM POSITIVE... Complete Vitals/IOs Vital Signs Date Time Temp Pulse Resp B/P (MAP) Pulse Ox O2 Delivery O2 Flow Rate FiO2 09/08/17 05:35 97.8 85 18 112/63 (79) 98 Assessment & Plan Problem List: (1) Other psychotic disorder not due to a substance or known physiological condition ICD Codes: F28 - Other psychotic disorder not due to a substance or known physiological condition (2) Polysubstance abuse ICD Codes: F19.10 - Other psychoactive substance abuse, uncomplicated Assessment & Plan Pt improving. Continue current tx plan. Estimated LOS: days Justification for Cont. Inpt. risk of decompensation Request HC Surrog/Guard Advoc?: Monae Mcclendon MD Sep 08, 2017 16:50
[2017-09-08 18:02] VITALS: BP 114/68; PULSE 88; RESP 16; TEMP 96.7; O2SAT 99
[2017-09-08] MEDS: hydrOXYzine HCL 50 MG TAB PO PRN (19:35)
[2017-09-08] MEDS: ACETAMINOPHEN 325 MG TAB PO PRN (21:33)
[2017-09-09] MEDS: diphenhydrAMINE HCL 50 MG CAP PO PRN (00:08)
[2017-09-09 05:32] VITALS: BP 106/58; PULSE 75; RESP 16; TEMP 98; O2SAT 98
[2017-09-09] MEDS: QUEtiapine FUMARATE 200 MG TAB PO SCH ×2 (08:20→21:51)
[2017-09-09] MEDS: busPIRone HCL 10 MG TAB PO SCH ×3 (08:20→21:50)
[2017-09-09] MEDS: DOCUSATE SODIUM 100 MG CAP PO SCH ×2 (08:20→21:00)
[2017-09-09] MEDS: LITHIUM CARBONATE 300 MG TAB PO SCH ×3 (08:20→21:00)
[2017-09-09] MEDS: hydrOXYzine HCL 50 MG TAB PO PRN ×2 (10:53→17:35)
--- NOTE | 2017-09-09 12:59 | HHI.PYPN ---
Subjective Chief Complaint: Depression/Anxiety Remarks Pt seen and discussed with staff. She has been more paranoid and anxious today. Staff report that she has made several bizarre statements. She is compliant with medications and has not had behavioral problems. No SI/HI Mental Status Examination Appearance: Appropriate Consciousness: Alert Orientation: x4 Motor Activity: Other (no abnormal motor movements noted) Speech: Unremarkable Language: Adequate Fund of Knowledge: Adequate Attention and Concentration: Adequate Memory: Unremarkable Mood: Other (less dysphoric today) Affect: Blunt (more reactive today) Thought Process & Associations: Intact, Logical, Linear Thought Content: Appropriate Hallucination Type: Auditory (decreasing, no CAH reported today) Delusion Type: Paranoid Suicidal Ideation: No Suicidal Plan: No Suicidal Intention: No Homicidal Ideation: No Homicidal Plan: No Homicidal Intention: No Insight: Fair Judgment: Adequate (fair) Results Labs Date/Time Source Procedure Growth Status 08/28/17 19:53 Urine Clean Catch Urine Culture - Final 50-100,000 CFU/ML MIXED GRAM POSITIVE... Complete Vitals/IOs Vital Signs Date Time Temp Pulse Resp B/P (MAP) Pulse Ox O2 Delivery O2 Flow Rate FiO2 09/09/17 05:32 98.0 75 16 106/58 (74) 98 Intake and Output 09/09/17 09/09/17 09/10/17 08:00 16:00 00:00 Intake Total 240 ml 240 ml Balance 240 ml 240 ml Assessment & Plan Problem List: (1) Other psychotic disorder not due to a substance or known physiological condition ICD Codes: F28 - Other psychotic disorder not due to a substance or known physiological condition (2) Polysubstance abuse ICD Codes: F19.10 - Other psychoactive substance abuse, uncomplicated Assessment & Plan Continue current tx plan. Estimated LOS: days Justification for Cont. Inpt. risk of decompensation Request HC Surrog/Guard Advoc?: Monae Mcclendon MD Sep 09, 2017 12:59
[2017-09-09] MEDS: ACETAMINOPHEN 325 MG TAB PO PRN ×2 (14:45→22:32)
[2017-09-09 18:34] VITALS: BP 120/64; PULSE 74; RESP 16; TEMP 98.2; O2SAT 97
[2017-09-10 06:17] VITALS: BP 102/62; PULSE 82; RESP 16; TEMP 98.2; O2SAT 99
[2017-09-10] MEDS: QUEtiapine FUMARATE 200 MG TAB PO SCH ×2 (08:46→21:44)
[2017-09-10] MEDS: DOCUSATE SODIUM 100 MG CAP PO SCH ×2 (08:46→21:44)
[2017-09-10] MEDS: LITHIUM CARBONATE 300 MG TAB PO SCH ×3 (09:00→21:44)
[2017-09-10] MEDS: busPIRone HCL 10 MG TAB PO SCH ×3 (09:00→21:44)
--- NOTE | 2017-09-10 10:30 | HHI.PYPN ---
Subjective Chief Complaint: Depression/Anxiety Remarks Patient seen and examined with nurse. Chart reviewed. Case discussed with nursing staff. Case discussed with counselor. On my examination today, the patient complains of feeling somewhat overmedicated and slowed down. This effect seems to be temporally associated with titration of Seroquel, and we discussed tapering the dose back somewhat as her psychiatric symptoms are presently well controlled versus replacing it with a different, less sedating antipsychotic. Patient prefers to taper the Seroquel as a first step. Mood improved versus before the weekend. Denies SI, HI or AVH. Denies any other side effects from medications. No physical complaints. Review of Systems Except as stated in HPI: all other systems reviewed are Neg Mental Status Examination Appearance: Appropriate Consciousness: Alert Orientation: x4 Motor Activity: Other (no motor abnormalities noted) Speech: Unremarkable Language: Adequate Fund of Knowledge: Adequate Attention and Concentration: Adequate Memory: Unremarkable Mood: Appropriate Affect: Appropriate Thought Process & Associations: Intact, Logical, Goal directed, Linear Thought Content: Appropriate Hallucination Type: None Delusion Type: Paranoid Suicidal Ideation: No Suicidal Plan: No Suicidal Intention: No Homicidal Ideation: No Homicidal Plan: No Homicidal Intention: No Insight: Fair Judgment: Adequate (fair) Results Labs Item Value Date Time Estimat Glomerular Filtration Rate 86 ML/MIN L 09/10/17 0940 [place] Level 0.4 MEQ/L L 09/10/17 0940 Labs reviewed. GFR improved. BMP otherwise unremarkable. [place] level remains subtherapeutic. Vitals/IOs Vital Signs Date Time Temp Pulse Resp B/P (MAP) Pulse Ox O2 Delivery O2 Flow Rate FiO2 09/10/17 06:17 98.2 82 16 102/62 (75) 99 Assessment & Plan Problem List: (1) Other psychotic disorder not due to a substance or known physiological condition ICD Codes: F28 - Other psychotic disorder not due to a substance or known physiological condition (2) Polysubstance abuse ICD Codes: F19.10 - Other psychoactive substance abuse, uncomplicated Assessment & Plan Taper Seroquel back to 200mg qAM and 600mg qHS. R/B/A for med change discussed with patient. Could consider replacing Seroquel with a less sedating antipsychotic, such as Latuda. Could consider titrating lithium to bring level into the therapeutic range, although mood symptoms are not prominent now. Continue to monitor on inpatient unit. Continue other medications and care as ordered. Justification for Cont. Inpt. Med changes. Discharge Planning So long as Seroquel dose adjustment is effective at ameliorating subjective sense of overmedication, anticipate discharge within the next few days. Request HC Surrog/Guard Advoc?: No Cole Monge MD Sep 10, 2017 10:30
[2017-09-10 10:38] LABS: BICARBONATE 26.3 MEQ/L (21.0-32.0); CALCIUM 8.8 MG/DL (8.5-10.1); CREATININE 0.76 MG/DL (0.50-1.00)
[2017-09-10] MEDS: hydrOXYzine HCL 50 MG TAB PO PRN (12:07)
[2017-09-10] MEDS: ACETAMINOPHEN 325 MG TAB PO PRN (15:18)
[2017-09-10 17:01] VITALS: BP 115/76; PULSE 90; RESP 16; TEMP 97.2; O2SAT 100
[2017-09-11 05:33] VITALS: BP 110/58; PULSE 84; RESP 18; TEMP 98; O2SAT 100
[2017-09-11 05:51] VITALS: BP 110/58; PULSE 84; RESP 16; TEMP 98; O2SAT 100
[2017-09-11] MEDS ORDERED: QUEtiapine FUMARATE 200 MG TAB PO SCH (09:00)
[2017-09-11] MEDS: DOCUSATE SODIUM 100 MG CAP PO SCH ×2 (09:10→21:00)
[2017-09-11] MEDS: LITHIUM CARBONATE 300 MG TAB PO SCH ×2 (09:13→21:00)
[2017-09-11] MEDS: busPIRone HCL 10 MG TAB PO SCH ×3 (09:13→21:00)
--- NOTE | 2017-09-11 12:21 | HHI.PYPN ---
Subjective Chief Complaint: Depression/Anxiety Remarks Patient seen and examined with nurse and nurse practitioner. Chart reviewed. Case discussed in treatment team. Sober living facility to which the patient would like to go will not accept the patient on a therapeutic dose of Seroquel. Apparently any other antipsychotic is acceptable, unclear why. I have discussed this difficulty at length with the patient. She would very much like to go to this particular sober living and would like to adjust antipsychotic in keeping with their requirements. We discussed the risks of such a venture, not least of which that she might destabilize psychiatrically on a different antipsychotic. Patient understands this risk but wishes to proceed. We discussed alternative antipsychotic options. The patient would like to retain the sedative effect of the Seroquel and so after a discussion of the R/B/A, we settle on a trial of Zyprexa. We discuss starting this agent at a fairly robust dose in hopes of minimizing the risk of psychiatric decompensation while transitioning to this new agent. Overall, patient is doing well from a psychiatric standpoint. No mood or psychotic symptoms elicited. No SI or HI. She does describe some anticipatory anxiety. Denies side effects from medications besides feeling somewhat overmedicated with the Seroquel. No physical complaints. Review of Systems Except as stated in HPI: all other systems reviewed are Neg Mental Status Examination Appearance: Appropriate Consciousness: Alert Orientation: x4 Motor Activity: Other (no abnormal motor movements noted) Speech: Unremarkable Language: Adequate Fund of Knowledge: Adequate Attention and Concentration: Adequate Memory: Unremarkable Mood: Appropriate, Anxious (mild) Affect: Appropriate Thought Process & Associations: Intact, Logical, Goal directed, Linear Thought Content: Appropriate Hallucination Type: None Delusion Type: None Suicidal Ideation: No Suicidal Plan: No Suicidal Intention: No Homicidal Ideation: No Homicidal Plan: No Homicidal Intention: No Insight: Fair Judgment: Adequate (fair) Results Labs Labs reviewed. Vitals/IOs Vital Signs Date Time Temp Pulse Resp B/P (MAP) Pulse Ox O2 Delivery O2 Flow Rate FiO2 09/11/17 05:51 98.0 84 16 110/58 (75) 100 Intake and Output 09/11/17 09/11/17 09/12/17 08:00 16:00 00:00 Intake Total 240 ml Balance 240 ml Assessment & Plan Problem List: (1) Other psychotic disorder not due to a substance or known physiological condition ICD Codes: F28 - Other psychotic disorder not due to a substance or known physiological condition (2) Polysubstance abuse ICD Codes: F19.10 - Other psychoactive substance abuse, uncomplicated Assessment & Plan Discontinue Seroquel and initiate Zyprexa 15 mg at bedtime. I have checked with the planner intern, and this agent is acceptable to sober living facility. Titrate lithium to 600 mg twice daily to try to bring the level within the therapeutic range. R/B/A for med changes discussed with patient. Continue other psychotropics as ordered. Continue to monitor on the inpatient unit. Continue other medications and care as ordered. Justification for Cont. Inpt. Med changes. Discharge Planning Possible discharge later this week to sober living. Request HC Surrog/Guard Advoc?: No Cole Monge MD Sep 11, 2017 12:21
[2017-09-11] MEDS: hydrOXYzine HCL 50 MG TAB PO PRN (12:29)
[2017-09-11] MEDS: ACETAMINOPHEN 325 MG TAB PO PRN (12:29)
[2017-09-11 18:49] VITALS: BP 123/87; PULSE 96; RESP 17; TEMP 97.8; O2SAT 100
[2017-09-12 06:15] VITALS: BP 110/71; PULSE 70; RESP 17; TEMP 98; O2SAT 98
[2017-09-12] MEDS: DOCUSATE SODIUM 100 MG CAP PO SCH ×2 (08:41→20:41)
[2017-09-12] MEDS: LITHIUM CARBONATE 300 MG TAB PO SCH ×2 (08:42→20:42)
[2017-09-12] MEDS: busPIRone HCL 10 MG TAB PO SCH ×3 (08:45→20:44)
--- NOTE | 2017-09-12 11:42 | HHI.PYPN ---
Subjective Chief Complaint: Depression/Anxiety Remarks Patient seen and examined with nurse and nurse practitioner. Chart reviewed. Case discussed with nursing staff. No behavioral issues overnight. Case discussed with counselor, and the patient has been accepted to sober living on . On my examination today, the patient reports that she slept somewhat more poorly on Zyprexa than she had on Seroquel. She is charted as having slept 7 hours. Complains of feeling slightly more depressed and more paranoid, although she denies any audiovisual hallucinations. She denies any suicidal or homicidal ideation. She remains committed to going to this particular sober living and so does not want to return to [facility]. We discussed possible medication adjustments (including no change) in service of ameliorating her reported symptoms and settle on titration of her Zyprexa. She complains of feeling somewhat tired and has a mild headache, which she associates with the medication change but otherwise denies side effects from medications. No physical complaints otherwise. Review of Systems Except as stated in HPI: all other systems reviewed are Neg Mental Status Examination Appearance: Appropriate Consciousness: Alert Orientation: x4 Motor Activity: Other (no motoric abnormalities appreciated) Speech: Unremarkable Language: Adequate Fund of Knowledge: Adequate Attention and Concentration: Adequate Memory: Unremarkable Mood: Other (mildly depressed) Affect: Appropriate (remains fairly full and reactive) Thought Process & Associations: Intact, Logical, Goal directed, Linear Thought Content: Appropriate Hallucination Type: None (denies AVH) Delusion Type: None (no delusional material) Suicidal Ideation: No Suicidal Plan: No Suicidal Intention: No Homicidal Ideation: No Homicidal Plan: No Homicidal Intention: No Insight: Fair Judgment: Adequate (fair) Results Labs Labs reviewed. Vitals/IOs Vital Signs Date Time Temp Pulse Resp B/P (MAP) Pulse Ox O2 Delivery O2 Flow Rate FiO2 09/12/17 06:15 98.0 70 17 110/71 (84) 98 Intake and Output 09/12/17 09/12/17 09/13/17 08:00 16:00 00:00 Intake Total 240 ml Balance 240 ml Assessment & Plan Problem List: (1) Other psychotic disorder not due to a substance or known physiological condition ICD Codes: F28 - Other psychotic disorder not due to a substance or known physiological condition (2) Polysubstance abuse ICD Codes: F19.10 - Other psychoactive substance abuse, uncomplicated Assessment & Plan Titrate Zyprexa to 20 mg at bedtime. I have suggested to the patient that we continue with the 15 mg dose for now given that she experienced some reported side effects with the change from Seroquel to Zyprexa, but she prefers to titrate the Zyprexa to target reported symptoms while in the monitored setting of the inpatient unit. R/B/A for medication changes discussed with patient. Continue other psychotropics as ordered. Continue to monitor on the inpatient unit. Continue other medications and care as ordered. Justification for Cont. Inpt. Med changes. Discharge Planning Anticipate discharge tomorrow, Request HC Surrog/Guard Advoc?: No Cole Monge MD Sep 12, 2017 11:42
[2017-09-12] MEDS: hydrOXYzine HCL 50 MG TAB PO PRN ×2 (14:17→20:41)
[2017-09-12 16:45] VITALS: BP 127/86; PULSE 93; RESP 18; TEMP 98.2; O2SAT 100
[2017-09-12] MEDS: ONDANSETRON ODT 4 MG TAB PO PRN (18:02)
[2017-09-12] MEDS: ACETAMINOPHEN 325 MG TAB PO PRN (18:02)
[2017-09-12] MEDS ORDERED: OLANZapine 10 MG TAB PO SCH (21:00)
[2017-09-13 06:05] VITALS: BP 98/56; PULSE 69; RESP 16; TEMP 97.8; O2SAT 98
[2017-09-13] MEDS: DOCUSATE SODIUM 100 MG CAP PO SCH (08:52)
[2017-09-13] MEDS: LITHIUM CARBONATE 300 MG TAB PO SCH (08:52)
[2017-09-13] MEDS: busPIRone HCL 10 MG TAB PO SCH (08:54)
[2017-09-13] MEDS ORDERED: OLAN10TA PO (10:40)
[2017-09-13] MEDS ORDERED: LITH300T3 PO (10:40)
[2017-09-13] MEDS ORDERED: HYDR50TA94 PO (10:40)
[2017-09-13] MEDS ORDERED: DOCU1CAP39 PO (10:40)
[2017-09-13] MEDS ORDERED: BUSP10TA PO (10:40)
--- NOTE | 2017-09-13 10:41 | HHI.DS ---
Psychiatry Discharge Summary Inpatient Psychiatric care?: Yes Advance Directive: No Reason Not Provided: unavailable Mental Health AdvanceDirective: No Health Care Proxy: No Admission Admission Date Aug 28, 2017 at 18:38 Admission Diagnosis: (1) Other psychotic disorder not due to a substance or known physiological condition ICD Code: F28 - Other psychotic disorder not due to a substance or known physiological condition (2) Polysubstance abuse ICD Code: F19.10 - Other psychoactive substance abuse, uncomplicated Brief History Ms. Rothman is a 37-year-old female with a reported history of bipolar disorder/ schizophrenia and a chart history of drug-induced mood disorder who presented to the emergency department complaining that she felt like her roommate was trying to kill her. She was evaluated by the psychiatric nurse practitioner in the emergency department who placed the patient under the [facility] act. Reviewing the electronic medical record, I note that the patient was admitted under Dr. Chester in March 2016 with a diagnosis of drug-induced mood disorder. Patient seen and examined with nurse. Chart reviewed. Case discussed with nursing staff. On my examination today, the patient presents as hypoverbal and flat. She says that she believes her roommate has been trying to kill her for several weeks. She believes that he has been trying to poison her with pa spray. She has not witnessed him doing this but says that she can taste the poison in her food. She endorses command auditory hallucinations to kill him and herself. She says "I didn't want to do that" and so she presented to the emergency department. She denies any urge to hurt herself or others on the inpatient unit at this time. She complains of feeling depressed and angry/ upset. She says this has been going on for "a long time." She says that she sleeps and eats fairly well. She does endorse some hopeless and worthless feelings. She endorses a significant amount of anxiety although she does not appear objectively anxious. The remainder of the psychiatric ROS is negative. The patient complains of some nausea but otherwise has no physical complaints. Tobacco Use In Past 30 Days: 5 or More Cigarettes/Day Alcohol Use: 2-3 Times Per Week Hospital Course Patient was admitted to a locked, inpatient psychiatric unit. A general medical consultation was obtained. Appropriate precautions were in place throughout patient's hospital stay. Patient was seen and examined on the unit by psychiatry and also visited by counselor. Psychotropic medications were adjusted. Patient had improvement presenting psychiatric symptomatology during the course of her hospital stay. There was no evidence of any suicidality or homicidality on the inpatient unit. The patient remained in good behavioral control and was uneventfully transferred from the higher acuity unit to the lower acuity unit. Counselor has worked with patient to arrange for placement in sober living. On the day of discharge: Patient seen and examined with nurse. Chart reviewed. Case discussed with nursing staff. No behavioral issues overnight. Case discussed with counselor. On my examination today, the patient is requesting discharge so that she may go to sober living today. She denies any suicidal or homicidal ideation, intent or plan on direct questioning and contracts for safety. Mood is much improved versus admission and affect is bright, full and reactive. I can elicit no depressive or hypomanic/manic symptoms. She says that she slept much better with titration of Zyprexa last night. She denies any audiovisual hallucinations. I can elicit no delusional beliefs. There is no evidence of any impairment in reality construction presently. She denies side effects from medications. She has no physical complaints. Suicide and violence risk assessment on day of discharge both suggest lower imminent risk, and the patient's level of function is adequate for outpatient care. The patient has maximized benefit from this inpatient psychiatric hospital stay and will be discharged today to sober living. Patient is to follow-up psychiatrically on an outpatient basis. She is also to follow-up with primary care. I have supported the patient in her desire for sobriety. I have counseled the patient regarding warning signs for need to return to the psychiatric emergency room as part of a general safety plan. Results Blood Pressure 98 / 56 Vital Signs Date Time Temp Pulse Resp B/P (MAP) Pulse Ox O2 Delivery O2 Flow Rate FiO2 09/13/17 06:05 97.8 69 16 98/56 (70) 98 Laboratory Results Test 08/29/17 11:44 09/10/17 09:40 Cholesterol Level 181 MG/DL (120-200) HDL Cholesterol 39.5 MG/DL (40.0-60.0) Hemoglobin A1c 5.3 % (4.3-6.0) LDL Cholesterol 120 MG/DL (0-99) Triglycerides Level 107 MG/DL (42-150) [place] Level 0.4 MEQ/L (0.5-1.5) Summary of Procedures None done Imaging None done Pending results at discharge: No Medications # of Antipsychotic meds at D/C: 1 Approp Antipsych med options 1 - Minimum of three failed multiple trials of monotherapy. 2 - Documented plan to taper to monotherapy due to previous use of multiple meds OR cross-taper in progress at D/C. 3 - Documentation of augmentation of Clozapine. 4 - Justification other than those listed in allowable values 1-3, document here : Discharge Discharge Date: Sep 13, 2017 Discharge Diagnosis: (1) Other psychotic disorder not due to a substance or known physiological condition Diagnosis: Principal (stabilized) ICD Code: F28 - Other psychotic disorder not due to a substance or known physiological condition (2) Polysubstance abuse Diagnosis: Secondary (counseled to quit) ICD Code: F19.10 - Other psychoactive substance abuse, uncomplicated Pt Condition on Discharge: Stable Discharge Disposition: Discharge Home Discharge Instructions Diet Instructions: As Tolerated, No Restrictions Activities you can perform: Weight Bearing as Jason Scheduled Appointment: as per counselor's notes New Orders: BASIC METABOLIC PROF - 3-5 Days LITHIUM (LI) - 3-5 Days New Medications: Buspirone (Buspirone) 10 Mg Tab 20 MG PO DAILY@0900,1500,2100 for MENTAL HEALTH for 15 Days, TAB 1 Refill Docusate Sodium (Dok) 100 Mg Cap 100 MG PO BID for Prevent Constipation for 15 Days, #30 CAP 1 Refill Hydroxyzine HCl (Hydroxyzine HCl) 50 Mg Tab 50 MG PO Q6H PRN for ANXIETY for 15 Days, #60 TAB 1 Refill [place] Carbonate ([place] Carbonate) 300 Mg Tab 600 MG PO BID for MENTAL HEALTH for 15 Days, #60 TAB 1 Refill Olanzapine (Olanzapine) 10 Mg Tab 20 MG PO HS for MENTAL HEALTH for 15 Days, TAB 1 Refill Discontinued Medications: Alprazolam (Xanax) 2 Mg Tab 2 MG PO Q8H PRN for ANXIETY, TAB 0 Refills [place] Carbonate ([place] Carbonate) 300 Mg Cap 300 MG PO DAILY, CAP 0 Refills Quetiapine (Seroquel) 200 Mg Tab 200 MG PO HS, #30 TAB 0 Refills Sertraline (Zoloft) 50 Mg Tab 50 MG PO DAILY, #30 TAB 0 Refills Topiramate (Topamax) 100 Mg Tab 100 MG PO DAILY for Control Seizures, #60 TAB 0 Refills Discharge Time > 30 minutes Mental Status Examination Appearance: Appropriate Consciousness: Alert Orientation: x4 Motor Activity: Normal gait, Other (no hand tremor, no dystonia, no dyskinesia , no other motor abnormalities noted.) Speech: Unremarkable Language: Adequate Fund of Knowledge: Adequate Attention and Concentration: Adequate Memory: Unremarkable Mood: Appropriate (mood is improved versus admission) Affect: Appropriate (full and reactive), Euthymic Thought Process & Associations: Intact, Logical, Goal directed, Linear Thought Content: Appropriate Hallucination Type: None Delusion Type: None Suicidal Ideation: No Suicidal Plan: No Suicidal Intention: No Homicidal Ideation: No Homicidal Plan: No Homicidal Intention: No Insight: Adequate Judgment: Adequate Discharge/Advance Care Plan Health Problems: (1) Other psychotic disorder not due to a substance or known physiological condition (2) Polysubstance abuse Goals to promote your health * To prevent worsening of your condition and complications * To maintain your health at the optimal level Directions to meet your goals Take your medications as prescribed Follow your dietary instruction Follow activity as directed Keep your appointments as scheduled Take your immunizations and boosters as scheduled If your symptoms worsen call your PCP, if no PCP go to Urgent Care Center or Emergency Room For 24 questions related to your inpatient stay or results of tests pending at discharge, please contact Dr. Cole Monge at Smoking is Dangerous to Your Health. Avoid second hand smoking Cole Monge MD Sep 13, 2017 10:41
[2017-09-13] MEDS: hydrOXYzine HCL 50 MG TAB PO PRN (11:13)
[2017-09-13] MEDS: ONDANSETRON ODT 4 MG TAB PO PRN (12:15)
[2017-09-13] MEDS: ACETAMINOPHEN 325 MG TAB PO PRN (12:15)
== END 2017-09-13 12:30 | DRG 885 ==
LOC: NEPE 08:28 → NEDA 08-28 18:38 → H270 08-28 21:25 → H260 08-31 10:35
PROVIDERS: ADMIT Psychiatry & Neurology Psychiatry; ATTEND Psychiatry & Neurology Psychiatry
DX: F28 Other psychotic disorder not due to a substance or known physiological condition (principal); N39.0 Urinary tract infection, site not specified; F19.10 Other psychoactive substance abuse, uncomplicated; F14.90 Cocaine use, unspecified, uncomplicated; R19.7 Diarrhea, unspecified; N28.9 Disorder of kidney and ureter, unspecified; E86.0 Dehydration; F17.210 Nicotine dependence, cigarettes, uncomplicated
CPT/HCPCS: 80048; 80053; 80061; 80178; 80307; 81001; 83036; 83735; 84439; 84443; 84703; 85025; 87086; 93005; 96372; 99281; J2060; Q0163